=== PATIENT | male | born 1955 ===

== ENCOUNTER 2022-10-15 15:22 | Inpatient (IN) ==
--- NOTE | 2022-10-15 15:36 | Emergency Department Note ---
Weakness HPI General Chief complaint: Weakness Stated complaint: Weakness Time Seen by Provider: 10/15/22 15:26 Source: EMS Mode of arrival: EMS History of Present Illness HPI Narrative: Narrative: Patient is a 67-year-old male who is brought in today by EMS with complaint of having generalized weakness over the last couple of months. Patient reports that he normally lives in [place], [place] but his brother had brought him to the [place] here to stay with him over the New 's holiday and to have "a henriquez-dig get together". He reports that his brother and [id number] helped him shower last night and he has been sitting on the couch today. He had difficulty standing up and getting up off the couch so his brother and [id number] called the ambulance. He reports he has a history of arthritis and dementia. He reports that he receives his medications from the [facility] pharmacy in [place]. Patient reports that he does drink alcohol. He denies any illicit drug use. He does not drink alcohol on a daily basis. His last drink was a week ago. Patient denies any fevers, chills, vision changes, headache, dizziness, chest pain, shortness of breath, cough, abdominal pain, nausea, vomiting, bleeding, or blood loss. Patient has history of urinary retention and reports he takes medication for his urinary retention. He is able to urinate but has weakened stream with urination. Other HPI was obtained today from reviewing patient's PCP office visit note from the [facility] date of service May 30, 2022. 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 Patient has chronic low back pain and chronic numbness to his legs and feet. 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 He does not feel that his back pain is worse or having any worsening numbness or tingling to his legs. He does occasionally have incontinence of urine which is been going on for several years with this patient. Patient typically ambulates occasionally with a cane and sometimes uses a walker or a wheelchair. He has medication list from his PCP as acetaminophen 500 mg by mouth every 6 hours as needed, hydrocodone 5/325 mg tablet every 6 hours if needed for pain, furosemide 20 mg tablet daily, gabapentin 600 mg p.o. 3 times daily, levothyroxine 150 mcg daily, meloxicam 15 mg tablet daily as needed for muscle spasm, multivitamin once daily, omeprazole once daily, potassium chloride 10 mEq daily, tamsulosin 0.4 mg capsule to take to once daily, thiamine 100 mg once daily. Related Data Home Medications Medication Instructions Recorded Confirmed Unobtainable 10/15/22 10/15/22 Allergies Allergy/AdvReac Type Severity Reaction Status Date / Time No Known Drug Allergies Allergy Verified 10/15/22 15:23 Review of Systems ROS ROS Narrative: Narrative: All systems ED: reviewed and negative except as stated. [facility] Narrative Patient History Narrative: Narrative: Medical/Surgical/Family History All Active Problems (Updated 10/15/22 @ 18:46 by TURNER Adler) Cellulitis (Acute) Hypomagnesemia (Acute) Acute hypokalemia (Acute) Exam Narrative Narrative: Narrative: General General appearance: Present alert and in no apparent distress Head Head: Present atraumatic and normal inspection Eye Eye: Present normal appearance and PERRL; Absent scleral icterus or nystagmus ENT ENT: Present mucous membranes dry; Absent nasal congestion Neck Neck: Present normal inspection and full ROM Chest Chest: Present normal inspection and symmetric chest wall rise Respiratory Respiratory: Present other (Lung sounds clear to auscultate with slight exp iratory wheeze in the left lower lobe.); Absent respiratory distress or accessory muscle use Cardiovascular Cardiovascular: Present regular rate and normal rhythm Adbominal Abdominal: Present soft; Absent distention or tenderness Extremities Extremities: Present full ROM and normal capillary refill Expanded Lower Extremity Top foot image: 1. Erythema, swelling, and tenderness with palpation. Small fissuring between the first and second toe. Back Back: Present normal inspection and full ROM; Absent spinous process tenderness Neurological Neurological: Present alert and CN II-XII intact; Absent motor sensory deficit Expanded Neurological Patient oriented to: Present person and place; Absent time Speech: Present fluid speech CRANIAL NERVES: EOM function (II, III, IV, ): Normal, facial sensation (V): Normal, facial palsy (VII): Normal, gag reflex (IX): Normal, spinal accessory f unction (XI): Normal and tongue deviation (XII): Normal Motor strength - LUE: 4/5 Motor strength - RUE: 4/5 Motor strength - LLE: 4/5 Motor strength - RLE: 4/5 SENSORY EXAM UPPER EXTREMITY: Normal: light touch SENSORY EXAM LOWER EXTREMITY: Normal: light touch Coma Scale Eye Opening: Spontaneous Coma Scale Motor Response: Obeys Commands Coma Scale Verbal Response: Confused Coma Scale Total: 14 Psychiatric Psychiatric: Present other (Patient appears moderately anxious. Patient has akathisia.); Absent homicidal ideation or suicidal ideation Skin Skin: Present warm (WNL), dry and normal color Course Vital Signs Vital signs: Vital Signs Oxygen Delivery Method 10/15/22 15:24 Temperature 102.7 F H 10/15/22 17:51 Pulse Rate 153 H 10/15/22 19:01 Respiratory Rate 30 H 10/15/22 19:01 Blood Pressure 108/78 10/15/22 19:01 Pulse Oximetry (%) 96 10/15/22 19:01 Oxygen Delivery Method 10/15/22 15:24 MDM MDM Narrative Medical decision making narrative: Narrative: Patient is a 67-year-old male who was brought in today by EMS after his brother called EMS. He typically lives in [place] and came to stay with his brother a few days ago. Patient is a relatively poor historian and majority of information gathered from both patient, patient's brother, and patient's primary care office visit note today to develop past medical history. Patient apparently requires assistance and has not been able to care for himself very well at home. He does have a Mediset today and apparently does miss a few doses of his medication. Patient's past medical history includes alcohol induced memory loss with patient having generalized weakness over the last several years. I was able to review his PCPs office clinic note from May 30, 2022 where he continued to have bilateral leg and low back pain. 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 Moderate foraminal encroachment on the left and mild on the right. Patient had foraminal encroachment on the right at the L5-S1 level. Patient denies any worsening back pain today and lower extremity neurological examination is unremarkable for any findings of cauda equina syndrome or worsening nerve root impingement, and I feel that proceeding with emergent MRI is likely not necessary today or emergent consultation with a neurosurgeon. Patient would likely need to be seen as an outpatient with a consultation with neurosurgery, however with his alcoholism it may be difficult for the patient be a candidate for elective lumbar neurosurgery. Patient reports he has not drank in a week. He apparently has not drank in the last 3 days according to the brother who is with him today. He was given 1 L normal saline intravenously for hydration, labs, chest x-ray, and EKG obtained today. Patient was appearing moderately anxious and was given 1 mg of IV lorazepam. Today patient's CBC does not show any leukocytosis. 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 His hemoglobin is 10.9 and hematocrit 31.3. Platelets 77. Chest x-ray today to my review is normal chest x-ray and do not see any definite infiltrate. Patient has erythema to the right foot with swelling and pain with palpation. Differential diagnosis could include cellulitis versus gout. Given that this extends past the MTP joint to the foot and he has a small fissure we will be treated for cellulitis. He was given 1 g Rocephin IV today in the emergency department. We did add a uric acid level to the patient's lab today. Uric acid level today is negative given the suspicion of gout less likely and more likely cellulitis to the right foot. X-ray of right foot was obtained today to evaluate for osteomyelitis. Foot x-ray was reviewed by myself and do not see any sign of osteomyelitis. There is soft tissue swelling suggestive of cellulitis. Patient's magnesium level is low at 0.8. 2 g magnesium sulfate IV ordered to be given in the emergency department. 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 EKG shows sinus tachycardia with a rate of 154. Patient did develop a fever and I ordered blood cultures, lactic acid, and IV antibiotic to be given for treatment of cellulitis to the right foot. Patient's lactic acid today is normal at 0.9. Patient's COVID and influenza test today are negative. Patient's [id number] troponin is negative. His BNP is 3197. TSH elevated at 16.94 and given his history of hypothyroidism and noncompliance with medication this may be why this is elevated. Patient sodium is 136 with a potassium of 2.6. Patient was ordered 40 mEq of IV potassium in the emergency department. Patient's glucose 93. Patient albumin level is 3.1 which is minimally low and patient's alkaline phos is 110 which is normal. His AST minimally elevated at 69. His bilirubin is high at 6.1. Given his alcohol history he ordered a INR and ammonia level. Patient's ammonia level is 40 today which is normal. Patient's INR today is 1.2. Patient's meld score today is 16 points. Patient is being hydrated with NS 30 mL/kg and a second liter of NS bolus was ordered. Patient was also given 650 mg of IV Tylenol for fever. Patient's tachycardia has improved since receiving IV fluids, IV antibiotics, and is currently receiving replacement of potassium and magnesium. Patient's pulse is 109 with respirations 22 and oxygen saturation 97% on room air. Patient's blood pressure is 114/73. Given the patient's electrolyte imbalance, fever, tachycardia, and high risk for failure of outpatient treatment for cellulitis. Due to these reasons I feel that the best plan for this patient would be hospital admission today where patient can receive electrolyte replacement and IV antibiotic for treatment of cellulitis. I was able to speak with Dr. Shields who is on today for hospitalist at [facility]. He agrees to accept the patient for hospital ad mission. Patient will be admitted to [facility] today. Lab Data Result diagrams: 10/15/22 16:10 Labs: Lab Results 10/15/22 10/15/22 10/15/22 Range/Units 16:10 16:10 16:10 WBC 7.5 (4.5-11.0) K/mcL RBC 2.90 L (4.63-6.08) M/mcL Hgb 10.9 L (13.7-17.5) g/dL Hct 31.3 L (40.1-51.0) % POC Hct (41-55) MCV 107.9 H (80.0-100.0) fL MCH 37.6 H (26.0-34.0) pg MCHC 34.8 (31.0-36.0) g/dL RDW 15.6 H (11.5-14.5) % Plt Count 77 L (140-440) K/mcL MPV 12.7 H (8.8-12.5) fL Immature Gran % (Auto) 1.2 H (0.0-0.5) % Neut % (Auto) 69.8 (38.0-78.0) % Lymph % (Auto) 15.9 (15.5-49.0) % Gregory % (Auto) 12.6 H (1.0-12.0) % Eos % (Auto) 0.1 (0.0-7.0) % Baso % (Auto) 0.4 (0.0-2.0) % Lymph # (Auto) 1.20 L (1.50-4.80) K/mcL Gregory # (Auto) 0.95 H (0.10-0.90) K/mcL Eos # (Auto) 0.01 (0.00-0.70) K/mcL Baso # (Auto) 0.03 (0.00-0.30) K/mcL Immature Gran # 0.09 H (0.00-0.05) K/mcl Absolute Neutrophils 5.26 (1.80-8.00) K/mcL POC PT (11.9-14.5) POC INR (0.8-1.2) POC VBG pH (7.32-7.42) POC VBG pCO2 at Temp (41-51) POC VBG pO2 (25-40) POC VBG HCO3 (24-28) POC VBG Total CO2 (25-29) POC Venous O2 Sat (40-70) POC VBG Base Excess (-2-2) VBG Lactic Acid (0.5-2) POC Sodium (133-145) POC Potassium (3.3-5.1) POC Chloride (96-108) POC Total CO2 (22-30) POC BUN (6-20) POC Creatinine (0.6-1.2) POC Glucose (70-105) Uric Acid (2.5-8.0) mg/dL POC WB Ioniz Calcium (1.16-1.32) Magnesium 0.8 L* (1.6-2.5) mg/dL Total Bilirubin 6.1 H (0.1-1.0) mg/dL Direct Bilirubin 3.9 H (<0.3) mg/dL AST 69 H (<40) U/L ALT 27 (<40) U/L Alkaline Phosphatase 110 (39-117) U/L Ammonia (16-60) umol/L Troponin T < 0.01 (<0.03) ng/mL NT-Pro-B Natriuret Pep 3197.0 H (<125.0) pg/mL Total Protein 6.2 (5.9-8.4) gm/dL Albumin 3.1 L (3.2-5.2) gm/dL Globulin 3.1 (2.2-3.7) gm/dL TSH 16.94 H (0.27-5.01) uIU/mL Ethyl Alcohol mg/dL mg/dL Ethyl Alcohol g/dL (<0.010) gm/dL 10/15/22 10/15/22 10/15/22 Range/Units 16:10 16:10 17:48 WBC (4.5-11.0) K/mcL RBC (4.63-6.08) M/mcL Hgb (13.7-17.5) g/dL Hct (40.1-51.0) % POC Hct (41-55) MCV (80.0-100.0) fL MCH (26.0-34.0) pg MCHC (31.0-36.0) g/dL RDW (11.5-14.5) % Plt Count (140-440) K/mcL MPV (8.8-12.5) fL Immature Gran % (Auto) (0.0-0.5) % Neut % (Auto) (38.0-78.0) % Lymph % (Auto) (15.5-49.0) % Gregory % (Auto) (1.0-12.0) % Eos % (Auto) (0.0-7.0) % Baso % (Auto) (0.0-2.0) % Lymph # (Auto) (1.50-4.80) K/mcL Gregory # (Auto) (0.10-0.90) K/mcL Eos # (Auto) (0.00-0.70) K/mcL Baso # (Auto) (0.00-0.30) K/mcL Immature Gran # (0.00-0.05) K/mcl Absolute Neutrophils (1.80-8.00) K/mcL POC PT (11.9-14.5) POC INR (0.8-1.2) POC VBG pH 7.50 H (7.32-7.42) POC VBG pCO2 at Temp 32.2 L (41-51) POC VBG pO2 36 (25-40) POC VBG HCO3 24.9 (24-28) POC VBG Total CO2 26.0 (25-29) POC Venous O2 Sat 75.0 H (40-70) POC VBG Base Excess 2.0 (-2-2) VBG Lactic Acid 0.9 (0.5-2) POC Sodium (133-145) POC Potassium (3.3-5.1) POC Chloride (96-108) POC Total CO2 (22-30) POC BUN (6-20) POC Creatinine (0.6-1.2) POC Glucose (70-105) Uric Acid 7.3 (2.5-8.0) mg/dL POC WB Ioniz Calcium (1.16-1.32) Magnesium (1.6-2.5) mg/dL Total Bilirubin (0.1-1.0) mg/dL Direct Bilirubin (<0.3) mg/dL AST (<40) U/L ALT (<40) U/L Alkaline Phosphatase (39-117) U/L Ammonia (16-60) umol/L Troponin T (<0.03) ng/mL NT-Pro-B Natriuret Pep (<125.0) pg/mL Total Protein (5.9-8.4) gm/dL Albumin (3.2-5.2) gm/dL Globulin (2.2-3.7) gm/dL TSH (0.27-5.01) uIU/mL Ethyl Alcohol mg/dL < 10.0 mg/dL Ethyl Alcohol g/dL < 0.010 (<0.010) gm/dL 10/15/22 10/15/22 10/15/22 Range/Units 17:52 18:07 18:25 WBC (4.5-11.0) K/mcL RBC (4.63-6.08) M/mcL Hgb (13.7-17.5) g/dL Hct (40.1-51.0) % POC Hct 31.0 L (41-55) MCV (80.0-100.0) fL MCH (26.0-34.0) pg MCHC (31.0-36.0) g/dL RDW (11.5-14.5) % Plt Count (140-440) K/mcL MPV (8.8-12.5) fL Immature Gran % (Auto) (0.0-0.5) % Neut % (Auto) (38.0-78.0) % Lymph % (Auto) (15.5-49.0) % Gregory % (Auto) (1.0-12.0) % Eos % (Auto) (0.0-7.0) % Baso % (Auto) (0.0-2.0) % Lymph # (Auto) (1.50-4.80) K/mcL Gregory # (Auto) (0.10-0.90) K/mcL Eos # (Auto) (0.00-0.70) K/mcL Baso # (Auto) (0.00-0.30) K/mcL Immature Gran # (0.00-0.05) K/mcl Absolute Neutrophils (1.80-8.00) K/mcL POC PT 13.4 14.8 H (11.9-14.5) POC INR 1.1 1.2 (0.8-1.2) POC VBG pH (7.32-7.42) POC VBG pCO2 at Temp (41-51) POC VBG pO2 (25-40) POC VBG HCO3 (24-28) POC VBG Total CO2 (25-29) POC Venous O2 Sat (40-70) POC VBG Base Excess (-2-2) VBG Lactic Acid (0.5-2) POC Sodium 136 (133-145) POC Potassium 2.6 L* (3.3-5.1) POC Chloride 98 (96-108) POC Total CO2 22.0 (22-30) POC BUN 8 (6-20) POC Creatinine 0.7 (0.6-1.2) POC Glucose 93 (70-105) Uric Acid (2.5-8.0) mg/dL POC WB Ioniz Calcium 0.91 L (1.16-1.32) Magnesium (1.6-2.5) mg/dL Total Bilirubin (0.1-1.0) mg/dL Direct Bilirubin (<0.3) mg/dL AST (<40) U/L ALT (<40) U/L Alkaline Phosphatase (39-117) U/L Ammonia (16-60) umol/L Troponin T (<0.03) ng/mL NT-Pro-B Natriuret Pep (<125.0) pg/mL Total Protein (5.9-8.4) gm/dL Albumin (3.2-5.2) gm/dL Globulin (2.2-3.7) gm/dL TSH (0.27-5.01) uIU/mL Ethyl Alcohol mg/dL mg/dL Ethyl Alcohol g/dL (<0.010) gm/dL 10/15/22 Range/Units 18:30 WBC (4.5-11.0) K/mcL RBC (4.63-6.08) M/mcL Hgb (13.7-17.5) g/dL Hct (40.1-51.0) % POC Hct (41-55) MCV (80.0-100.0) fL MCH (26.0-34.0) pg MCHC (31.0-36.0) g/dL RDW (11.5-14.5) % Plt Count (140-440) K/mcL MPV (8.8-12.5) fL Immature Gran % (Auto) (0.0-0.5) % Neut % (Auto) (38.0-78.0) % Lymph % (Auto) (15.5-49.0) % Gregory % (Auto) (1.0-12.0) % Eos % (Auto) (0.0-7.0) % Baso % (Auto) (0.0-2.0) % Lymph # (Auto) (1.50-4.80) K/mcL Gregory # (Auto) (0.10-0.90) K/mcL Eos # (Auto) (0.00-0.70) K/mcL Baso # (Auto) (0.00-0.30) K/mcL Immature Gran # (0.00-0.05) K/mcl Absolute Neutrophils (1.80-8.00) K/mcL POC PT (11.9-14.5) POC INR (0.8-1.2) POC VBG pH (7.32-7.42) POC VBG pCO2 at Temp (41-51) POC VBG pO2 (25-40) POC VBG HCO3 (24-28) POC VBG Total CO2 (25-29) POC Venous O2 Sat (40-70) POC VBG Base Excess (-2-2) VBG Lactic Acid (0.5-2) POC Sodium (133-145) POC Potassium (3.3-5.1) POC Chloride (96-108) POC Total CO2 (22-30) POC BUN (6-20) POC Creatinine (0.6-1.2) POC Glucose (70-105) Uric Acid (2.5-8.0) mg/dL POC WB Ioniz Calcium (1.16-1.32) Magnesium (1.6-2.5) mg/dL Total Bilirubin (0.1-1.0) mg/dL Direct Bilirubin (<0.3) mg/dL AST (<40) U/L ALT (<40) U/L Alkaline Phosphatase (39-117) U/L Ammonia 40 (16-60) umol/L Troponin T (<0.03) ng/mL NT-Pro-B Natriuret Pep (<125.0) pg/mL Total Protein (5.9-8.4) gm/dL Albumin (3.2-5.2) gm/dL Globulin (2.2-3.7) gm/dL TSH (0.27-5.01) uIU/mL Ethyl Alcohol mg/dL mg/dL Ethyl Alcohol g/dL (<0.010) gm/dL ED POC Tests ED POC Tests: DAVID - Influenza A Negative DAVID - Influenza B Negative DAVID - SARS Antigen Negative Discharge Plan Patient/Caregiver Discharge Instructions Pt seen by [employer] SUPERVISOR/PA only: No Clinical Impression: Hypomagnesemia, Acute hypokalemia Cellulitis Qualifiers: Site of cellulitis: extremity Site of cellulitis of extremity: lower extremity Laterality: right Qualified Code(s): L03.115 - Cellulitis of right lower limb Patient Disposition: Xfer As Inpt ([facility]) Follow up with: Lester Marin PA-C [Primary Care Provider] - Prescriptions: No Action Unobtainable
[2022-10-15] MEDS ORDERED: 0.9 % SODIUM CHLORIDE 1,000 ML IV ONE ×2 (15:38→18:16)
[2022-10-15] MEDS ORDERED: FOLIC ACID 1 MG TABLET PO ONE (15:48)
[2022-10-15] MEDS ORDERED: THIAMINE 100 MG in 0.9 % SODIUM CHLORIDE 50 ML IV ONE (15:48)
[2022-10-15] MEDS ORDERED: LORazepam 2 MG/ML VIAL IV ONE ×2 (16:00→18:46)
[2022-10-15] MEDS ORDERED: THIAMINE 100 MG/ML VIAL ONE ×2 (16:18→22:47)
[2022-10-15 16:46] LABS: Basophils # (Auto) 0.03 K/mcL (0.00-0.30); Basophils % (Auto) 0.4 % (0.0-2.0); Eosinophils # (Auto) 0.01 K/mcL (0.00-0.70); Eosinophils % (Auto) 0.1 % (0.0-7.0); Hematocrit 31.3 % (40.1-51.0); Hemoglobin 10.9 g/dL (13.7-17.5); Lymphocytes % (Auto) 15.9 % (15.5-49.0); Mean Cell Volume 107.9 fL (80.0-100.0); Mean Corpuscular HGB Conc 34.8 g/dL (31.0-36.0); Mean Platelet Volume 12.7 fL (8.8-12.5); Monocytes # (Auto) 0.95 K/mcL (0.10-0.90); Monocytes % (Auto) 12.6 % (1.0-12.0); Neutrophils % (Auto) 69.8 % (38.0-78.0); Platelet Count 77 K/mcL (140-440); Red Cell Distribution Width 15.6 % (11.5-14.5); WBC 7.5 K/mcL (4.5-11.0)
[2022-10-15 17:03] LABS: Alcohol, Blood < 10.0 mg/dL; Alcohol,Blood < 0.010 gm/dL (<0.010)
[2022-10-15] MEDS ORDERED: cefTRIAXone 1 GM VIAL IV ONE (17:13)
[2022-10-15 17:27] LABS: ALT/SGPT 27 U/L (<40); AST/SGOT 69 U/L (<40); Albumin 3.1 gm/dL (3.2-5.2); Alkaline Phosphatase 110 U/L (39-117); Bilirubin,Direct 3.9 mg/dL (<0.3); Bilirubin,Total 6.1 mg/dL (0.1-1.0); Globulin 3.1 gm/dL (2.2-3.7); Thyroid Stimulating Hormone 16.94 uIU/mL (0.27-5.01)
[2022-10-15 17:34] LABS: Uric Acid 7.3 mg/dL (2.5-8.0)
[2022-10-15] MEDS ORDERED: MAGNESIUM SULFATE 8.12 MEQ in DEXTROSE 5% IN WATER 50 ML IV ONE (17:49)
[2022-10-15] MEDS ORDERED: POTASSIUM CHLORIDE 40 MEQ in DEXTROSE 5% IN WATER 500 ML IV ONE ×2 (17:54→22:30)
[2022-10-15 17:56] LABS: POC Calcium, Ionized 0.91 (1.16-1.32); POC Creatinine 0.7 (0.6-1.2); POC Potassium 2.6 (3.3-5.1)
[2022-10-15] MEDS ORDERED: MAGNESIUM SULFATE 2 GM/50 ML BAG IV ONE ×2 (17:58→18:23)
[2022-10-15] MEDS ORDERED: POTASSIUM CHLORIDE 20 MEQ/10 ML VIAL IV ONE ×2 (17:59→22:49)
[2022-10-15] MEDS ORDERED: POTASSIUM PHOSPHATE 40 MEQ in DEXTROSE 5% IN WATER 500 ML IV ONE (18:11)
[2022-10-15 18:12] LABS: POC INR 1.1 (0.8-1.2); POC Pro Time 13.4 (11.9-14.5)
[2022-10-15 18:28] LABS: POC INR 1.2 (0.8-1.2); POC Pro Time 14.8 (11.9-14.5)
[2022-10-15] MEDS ORDERED: ACETAMINOPHEN 650 MG/65 ML BAG IV ONE (18:34)
--- NOTE | 2022-10-15 20:01 | Internal Med History&Physical ---
HPI History of Present Illness Patient information: Note initiated : 10/15/22 at 7:57 pm Service Date, if different from initiated Date: [] Patient: Sandip Montana 67 y/o M admitted on for Weakness. Chief Complaint: [] History of present illness: Mr. Montana is a 67 year old M male with a historyof severe alcohol use disorder, cognitive impairment, hypothyroidism, BPH, degenerative disc disease who is visiting family and was brought to the ED by family due to concerns of generalized weakness and inability to manage his activities of daily living as well as lower extremity edema. The patient was found to have cellulitis of his right foot in the ED as well as hypokalemia and hypomagnesemia. Per report, the patient consumes a significant amount of alcohol daily most the time but has not consumed alcohol for several days. He is apparently homebound and requires a caregiver at baseline. The patient lives in [place] and came to spent the holiday weekend with family. Hospital medicine was asked to admit the patient for cellulitis, electrolyte replacement and supportive cares. The patient is unable to provide any history as he received Ativan in the ED and was asleep when I examined him. The ED provider did discuss CODE STATUS with his family members and the patient is full code. Review of systems: Unable to obtain due to altered mental status. Physical exam Head: Atraumatic, normal inspection. Eyes: normal appearance, no scleral icterus. Neck: full ROM Respiratory: Tachypnea, clear sounding lung robertson bilaterally. Cardiovascular: Tachycardia, S1, S2. GI/Abdominal: soft, nontender, no guarding. Extremities: right foot edema, warmth and tenderness. Neurological: CN II-XII intact, intact motor, intact sensation. Psychiatric: Impaired cognition. Skin: Cellulitis of the right foot. PFSH PFSH All Active Problems (Updated 10/15/22 @ 18:46 by TURNER Adler) Cellulitis (Acute) Hypomagnesemia (Acute) Acute hypokalemia (Acute) MEDS/ALLERGIES Home Medications and Allergies Home Medications Medication Instructions Recorded Confirmed Type Unobtainable 10/15/22 10/15/22 History Allergies Allergy/AdvReac Type Severity Reaction Status Date / Time No Known Drug Allergies Allergy Verified 10/15/22 15:23 EXAM Constitutional Vitals: Temp Pulse Resp BP Pulse Ox O2 Del Method 102.7 F H 61 23 H 96/77 98 10/15/22 17:51 10/15/22 19:48 10/15/22 19:48 10/15/22 19:31 10/15/22 19:48 10/15/22 15:24 DATA Data Completed and Pending Labs: Labs from last 24 hours 10/15/22 10/15/22 10/15/22 18:30 18:25 18:10 WBC RBC Hgb Hct POC Hct MCV MCH MCHC RDW Plt Count MPV Immature Gran % (Auto) Neut % (Auto) Lymph % (Auto) Bradley % (Auto) Eos % (Auto) Baso % (Auto) Lymph # (Auto) Bradley # (Auto) Eos # (Auto) Baso # (Auto) Immature Gran # Absolute Neutrophils POC PT 14.8 H Pending POC INR 1.2 Pending POC VBG pH POC VBG pCO2 at Temp POC VBG pO2 POC VBG HCO3 POC VBG Total CO2 POC Venous O2 Sat POC VBG Base Excess VBG Lactic Acid POC Sodium POC Potassium POC Chloride POC Total CO2 POC BUN POC Creatinine POC Glucose Uric Acid POC WB Ioniz Calcium Magnesium Total Bilirubin Direct Bilirubin AST ALT Alkaline Phosphatase Ammonia 40 Troponin T NT-Pro-B Natriuret Pep Total Protein Albumin Globulin TSH Ethyl Alcohol mg/dL Ethyl Alcohol g/dL 10/15/22 10/15/22 10/15/22 18:07 17:52 17:48 WBC RBC Hgb Hct POC Hct 31.0 L MCV MCH MCHC RDW Plt Count MPV Immature Gran % (Auto) Neut % (Auto) Lymph % (Auto) Bradley % (Auto) Eos % (Auto) Baso % (Auto) Lymph # (Auto) Bradley # (Auto) Eos # (Auto) Baso # (Auto) Immature Gran # Absolute Neutrophils POC PT 13.4 POC INR 1.1 POC VBG pH 7.50 H POC VBG pCO2 at Temp 32.2 L POC VBG pO2 36 POC VBG HCO3 24.9 POC VBG Total CO2 26.0 POC Venous O2 Sat 75.0 H POC VBG Base Excess 2.0 VBG Lactic Acid 0.9 POC Sodium 136 POC Potassium 2.6 L* POC Chloride 98 POC Total CO2 22.0 POC BUN 8 POC Creatinine 0.7 POC Glucose 93 Uric Acid POC WB Ioniz Calcium 0.91 L Magnesium Total Bilirubin Direct Bilirubin AST ALT Alkaline Phosphatase Ammonia Troponin T NT-Pro-B Natriuret Pep Total Protein Albumin Globulin TSH Ethyl Alcohol mg/dL Ethyl Alcohol g/dL 10/15/22 10/15/22 10/15/22 16:10 16:10 16:10 WBC RBC Hgb Hct POC Hct MCV MCH MCHC RDW Plt Count MPV Immature Gran % (Auto) Neut % (Auto) Lymph % (Auto) Bradley % (Auto) Eos % (Auto) Baso % (Auto) Lymph # (Auto) Bradley # (Auto) Eos # (Auto) Baso # (Auto) Immature Gran # Absolute Neutrophils POC PT POC INR POC VBG pH POC VBG pCO2 at Temp POC VBG pO2 POC VBG HCO3 POC VBG Total CO2 POC Venous O2 Sat POC VBG Base Excess VBG Lactic Acid POC Sodium POC Potassium POC Chloride POC Total CO2 POC BUN POC Creatinine POC Glucose Uric Acid 7.3 POC WB Ioniz Calcium Magnesium 0.8 L* Total Bilirubin 6.1 H Direct Bilirubin 3.9 H AST 69 H ALT 27 Alkaline Phosphatase 110 Ammonia Troponin T NT-Pro-B Natriuret Pep 3197.0 H Total Protein 6.2 Albumin 3.1 L Globulin 3.1 TSH 16.94 H Ethyl Alcohol mg/dL < 10.0 Ethyl Alcohol g/dL < 0.010 10/15/22 10/15/22 16:10 16:10 WBC 7.5 RBC 2.90 L Hgb 10.9 L Hct 31.3 L POC Hct MCV 107.9 H MCH 37.6 H MCHC 34.8 RDW 15.6 H Plt Count 77 L MPV 12.7 H Immature Gran % (Auto) 1.2 H Neut % (Auto) 69.8 Lymph % (Auto) 15.9 Bradley % (Auto) 12.6 H Eos % (Auto) 0.1 Baso % (Auto) 0.4 Lymph # (Auto) 1.20 L Bradley # (Auto) 0.95 H Eos # (Auto) 0.01 Baso # (Auto) 0.03 Immature Gran # 0.09 H Absolute Neutrophils 5.26 POC PT POC INR POC VBG pH POC VBG pCO2 at Temp POC VBG pO2 POC VBG HCO3 POC VBG Total CO2 POC Venous O2 Sat POC VBG Base Excess VBG Lactic Acid POC Sodium POC Potassium POC Chloride POC Total CO2 POC BUN POC Creatinine POC Glucose Uric Acid POC WB Ioniz Calcium Magnesium Total Bilirubin Direct Bilirubin AST ALT Alkaline Phosphatase Ammonia Troponin T < 0.01 NT-Pro-B Natriuret Pep Total Protein Albumin Globulin TSH Ethyl Alcohol mg/dL Ethyl Alcohol g/dL A/P Narrative A/P Narrative: Assessment: 67-year-old male with a history of severe alcohol use disorder complicated by cognitive impairment, hypothyroidism, BPH, degenerative disc disease was brought to the emergency department by concerned family members due to generalized weakness, inability to manage ADLs and lower extremity edema. In the emergency department, the patient was found to have cellulitis, severe hypokalemia and severe hypomagnesemia. Chest x-ray did not show any infiltrates. Lactic acid was normal. #SIRS possible sepsis #Nonpurulent cellulitis of right foot versus gout #Tachycardia, high risk for atrial fibrillation or atrial flutter #Severe hypokalemia #Severe hypomagnesemia #Severe alcohol use disorder/high risk for a withdrawal #Macrocytic anemia likely secondary to alcohol use #Thrombocytopenia likely secondary to alcohol use #Elevated bilirubin likely secondary to alcohol use #Hypothyroidism, poorly controlled likely secondary to noncompliance #Reported chronic hepatitis C #Probable malnourishment #Generalized weakness #Cognitive impairment likely secondary to chronic alcohol use Plan -Cefazolin 2 g IV daily hours -Blood cultures x2. -Replace potassium and magnesium. -X-ray of right foot. -Urinalysis with reflex to culture. -CIWA protocol with Ativan IV as needed. -Vitamin supplementation including with high-dose IV thiamine. -IV fluid, monitor volume status. -Repeat EKG. -Transthoracic echocardiogram. -Liver and gallbladder ultrasound. --Consider ultrasound to evaluate for right MTP joint effusion. -Monitor CBC, IPP. -Check vitamin B12 level. -Check D-dimer, if elevated obtain CTA chest. -Urine drug screen. -security monitor. -Regular diet. -PT and OT consult. -Home medication reconciliation, continue important meds. -DVT prophylaxis: Lovenox as long as platelets greater than 50,000. -CODE STATUS: Full -Disposition: TBD Time Spent With Patient Time: Total time spent is greater than 50% in coordination of care (as documented) at patient's floor/unit and/or counseling patient:
[2022-10-15] MEDS ORDERED: LORazepam 2 MG/ML VIAL IV PRN (21:16)
[2022-10-15] MEDS ORDERED: SENNOSIDES 1 TABLET PO PRN (21:16)
[2022-10-15] MEDS ORDERED: POTASSIUM CHLORIDE 20 MEQ TABLET PO ONE (21:16)
[2022-10-15] MEDS ORDERED: LACTULOSE 20 GM/30 ML ORAL.SOL PO PRN (21:16)
[2022-10-15] MEDS ORDERED: ceFAZolin 2 GM in DEXTROSE 5% IN WATER 50 ML IV SCH (21:16)
[2022-10-15] MEDS ORDERED: KETOROLAC 30 MG/ML VIAL IV PRN (21:16)
[2022-10-15] MEDS ORDERED: ONDANSETRON 4 MG/2 ML VIAL IV PRN (21:16)
[2022-10-15] MEDS ORDERED: ALBUTEROL SULFATE 2.5 MG/3 ML NEBULIZER NEB PRN (21:16)
[2022-10-15 21:27] LABS: Amphetamine Screen,Urine None detected; Barbiturate Screen,Urine None detected; Benzodiazepines Screen,Urine None detected; Cannabinoid Screen,Urine None detected; Cocaine Screen,Urine None detected; Opiate Screen,Urine None detected; Oxycodone, Urine Screen None detected; Phencyclidine Screen,Urine None detected
[2022-10-15 21:56] LABS: C-Reactive Protein 10.5 mg/dL (0.03-0.80)
[2022-10-15] MEDS ORDERED: AMIODARONE 150 MG in DEXTROSE 5% IN WATER 50 ML IV ONE (22:25)
[2022-10-15] MEDS ORDERED: HALOPERIDOL LACTATE 5 MG/ML VIAL IV PRN (22:25)
[2022-10-15] MEDS: DOCUSATE SODIUM 100 MG CAPSULE PO SCH (22:30)
[2022-10-15] MEDS ORDERED: PHENYLEPHRINE 20 MG in 0.9 % SODIUM CHLORIDE 248 ML IV PRN (22:30)
[2022-10-15] MEDS: 0.9 % SODIUM CHLORIDE 1,000 ML IV SCH (22:37)
[2022-10-15] MEDS: ceFAZolin 1 GM VIAL IV SCH (22:54)
[2022-10-15] MEDS: 0.9 % SODIUM CHLORIDE 10 ML SYRINGE IV SCH ×2 (22:55)
[2022-10-15] MEDS: THIAMINE 300 MG in 0.9 % SODIUM CHLORIDE 50 ML IV SCH (22:55)
[2022-10-15] MEDS ORDERED: AMIODARONE 150 MG/3 ML VIAL IV ONE (23:17)
[2022-10-15] MEDS ORDERED: AMIODARONE 360 MG/200 ML BAG IV ONE (23:45)
[2022-10-15] MEDS: AMIODARONE 360 MG in PREMIX 1 BAG IV SCH (23:46)
[2022-10-15] MEDS: 0.9 % SODIUM CHLORIDE 250 ML IV SCH (23:53)
[2022-10-16] MEDS: fentaNYL 100 MCG/2 ML VIAL IV PRN ×4 (00:16→18:34)
[2022-10-16] MEDS ORDERED: fentaNYL 100 MCG/2 ML VIAL IV ONE (02:37)
[2022-10-16] MEDS ORDERED: IOPAMIDOL 100 ML BOTTLE IV ONE (02:38)
[2022-10-16] MEDS: 0.9 % SODIUM CHLORIDE 10 ML SYRINGE IV SCH ×6 (05:56→21:23)
[2022-10-16] MEDS: DOCUSATE SODIUM 100 MG CAPSULE PO SCH ×2 (07:13→20:42)
[2022-10-16 07:19] LABS: ALT/SGPT 22 U/L (<40); AST/SGOT 59 U/L (<40); Albumin 2.5 gm/dL (3.2-5.2); Albumin/Globulin Ratio 0.8 (1.0-2.3); Alkaline Phosphatase 96 U/L (39-117); Bilirubin,Direct 3.6 mg/dL (<0.3); Blood Urea Nitrogen 7 mg/dL (8-23); Calcium 6.8 mg/dL (8.6-10.4); Carbon Dioxide 22 mmol/L (22-30); Chloride 102 mmol/L (96-108); Globulin 3.1 gm/dL (2.2-3.7); Glomerular Filtration Rate 99; Glucose 113 mg/dL (70-105); Lactate Dehydrogenase 228 U/L (135-225); Phosphorous 2.2 mg/dL (2.5-4.5); Triglycerides 126 mg/dL (<150); Uric Acid 5.9 mg/dL (2.5-8.0)
[2022-10-16 07:27] LABS: Basophils # (Auto) 0.02 K/mcL (0.00-0.30); Basophils % (Auto) 0.4 % (0.0-2.0); Eosinophils # (Auto) 0.09 K/mcL (0.00-0.70); Eosinophils % (Auto) 1.7 % (0.0-7.0); Hematocrit 29.5 % (40.1-51.0); Hemoglobin 9.8 g/dL (13.7-17.5); Lymphocytes % (Auto) 18.6 % (15.5-49.0); Mean Cell Volume 110.1 fL (80.0-100.0); Mean Corpuscular HGB Conc 33.2 g/dL (31.0-36.0); Mean Platelet Volume 12.7 fL (8.8-12.5); Monocytes # (Auto) 0.58 K/mcL (0.10-0.90); Monocytes % (Auto) 10.8 % (1.0-12.0); Neutrophils % (Auto) 67.9 % (38.0-78.0); Platelet Count 88 K/mcL (140-440); RBC 2.68 M/mcL (4.63-6.08); Red Cell Distribution Width 15.9 % (11.5-14.5); WBC 5.4 K/mcL (4.5-11.0)
[2022-10-16] MEDS: ceFAZolin 1 GM VIAL IV SCH ×2 (07:40→15:26)
[2022-10-16] MEDS ORDERED: MAGNESIUM SULFATE 2 GM/50 ML BAG IV ONE (08:19)
--- NOTE | 2022-10-16 09:00 | XRay Report ---
HISTORY: Increased weakness and wheezing, smoker FINDINGS: Lungs are clear and normally expanded. There is no evidence of emphysema. No infiltrate, mass or congestive heart failure are present. The heart size, mediastinum and carito are normal. There are multiple old healed rib fractures posteriorly in right upper thorax and an old fracture of the right clavicle. There has been no significant change since 12/06/21. IMPRESSION: Normal exam Interpreted and Authenticated by: Casimiro Diaz 10/16/22
--- NOTE | 2022-10-16 09:10 | XRay Report ---
HISTORY: Cellulitis right foot FINDINGS: There is moderate generalized soft tissue swelling along the dorsum of the foot. There is no gas or foreign body in the soft tissues. A mild hallux valgus deformity is present at the first metatarsal phalangeal joint. There is underlying arthritis with severe joint space narrowing and formation of small spurs. The remainder of the joint spaces are normal. There is no fracture or destructive lesion. No osteomyelitis is present. IMPRESSION: Cellulitis and no evidence of osteomyelitis Arthritis at the first metatarsal phalangeal joint Interpreted and Authenticated by: Casimiro Diaz 10/16/22
[2022-10-16] MEDS: THIAMINE 300 MG in 0.9 % SODIUM CHLORIDE 50 ML IV SCH ×3 (09:13→21:22)
[2022-10-16] MEDS: ENOXAPARIN 40 MG/0.4 ML SYRINGE SQ SCH (09:14)
[2022-10-16] MEDS: POTASSIUM CHLORIDE 20 MEQ TABLET PO SCH (09:14)
[2022-10-16] MEDS: CYANOCOBALAMIN (VITAMIN B-12) 500 MCG TABLET PO SCH (09:14)
[2022-10-16] MEDS: FOLIC ACID 1 MG TABLET PO SCH (09:14)
[2022-10-16] MEDS: ACETAMINOPHEN 325 MG TABLET PO PRN ×2 (09:15→18:01)
--- NOTE | 2022-10-16 09:33 | Cat Scan Report ---
History: Increased weakness, elevated serum d-dimer level TECHNIQUE: Following injection of intravenous nonionic contrast the chest was imaged during the pulmonary arterial phase. Sagittal, coronal and MIPS images were created. The radiation exposure was limited using dose reduction technology. FINDINGS: The pulmonary arteries are normal with no intraluminal filling defects. Main pulmonary artery is normal in caliber. Dependent atelectasis is present in the posterior basal segments of both lower lobes. There is interstitial lung disease with inflammation or fibrosis in the lateral basal segment of the left lower lobe. The remainder of the lung robertson are clear. There is no evidence of a mass, lobar consolidation or COPD. No pleural or pericardial effusion are present. The heart is normal in size and contour. There is no significant plaque formation in the coronary arteries. There are scattered plaques along the wall of a normal caliber aorta. No abnormally enlarged lymph nodes are present in the mediastinum or carito. There is symmetric gynecomastia. Moderate fatty infiltration is present throughout the liver. There is high attenuation sludge or milk of calcium layering posteriorly in the neck of the gallbladder. Gallbladder wall is not thickened or inflamed. IMPRESSION: No evidence pulmonary emboli Interstitial lung disease in the lateral basal segment of the left lower lobe which could be inflammation or fibrosis. Fatty liver Interpreted and Authenticated by: Casimiro Diaz 10/16/22
[2022-10-16] MEDS: AMIODARONE 360 MG in PREMIX 1 BAG IV SCH (11:33)
[2022-10-16] MEDS: 0.9 % SODIUM CHLORIDE 250 ML IV SCH (11:39)
[2022-10-16] MEDS: METOPROLOL TARTRATE 25 MG TABLET PO SCH ×2 (12:29→21:17)
--- NOTE | 2022-10-16 12:42 | Ultrasound Report ---
History: Elevated liver enzymes, fatty liver on CT FINDINGS: The liver is echogenic due to diffuse fatty infiltration. This is demonstrated on the preceding chest CT. There is no evidence of a liver mass. Doppler shows normal blood flow in the hepatic and portal veins. There is some echogenic sludge layering posteriorly in the neck and fundus of the gallbladder. No discrete stone is seen. The wall is 1.5 mm in thickness and the patient was nontender while scanning over the gallbladder. No free fluid is present. The visualized portions of the bile ducts are normal in caliber with the common duct measuring up to 4.3 mm. The pancreas is obscured by overlying bowel gas. No ascites is present. IMPRESSION: Echogenic sludge versus milk of calcium in the gallbladder. No evidence of cholecystitis and no dilatation of bile ducts. Fatty infiltration of the liver, without evidence of cirrhosis Interpreted and Authenticated by: Casimiro Diaz 10/16/22
--- NOTE | 2022-10-16 13:41 | Internal Med Progress Note ---
SUBJECTIVE Subjective Patient information: Note initiated : 10/16/22 at 1:34 pm Service Date, if different from initiated Date: [] Patient: Sandip Montana 67 y/o M admitted on 10/15/22 for Weakness. Chief Complaint: [] Interval history: Mr. Montana is a 67 year old M male with a historyof severe alcohol use disorder, cognitive impairment, hypothyroidism, BPH, degenerative disc disease who is visiting family and was brought to the ED by family due to concerns of generalized weakness and inability to manage his activities of daily living as well as lower extremity edema. The patient was found to have cellulitis of his right foot in the ED as well as hypokalemia and hypomagnesemia. Per report, the patient consumes a significant amount of alcohol daily most the time but has not consumed alcohol for several days. He is apparently homebound and requires a caregiver at baseline. The patient lives in [place] and came to spent the holiday weekend with family. Hospital medicine was asked to admit the patient for cellulitis, electrolyte replacement and supportive cares. The patient is unable to provide any history as he received Ativan in the ED and was asleep when I examined him. The ED provider did discuss CODE STATUS with his family nancie logan and the patient is full code. 10/16 Overnight the patient went into atrial fibrillation with rapid ventricular response, started a amiodarone bolus followed by infusion and the patient converted back to sinus rhythm. This morning started Lopressor 25 mg twice daily and discontinued the amiodarone infusion. The patient is alert and oriented today. Cellulitis improving since admission. Replaced magnesium, potassium normal today. Radiology reports of the foot x-ray was not suggestive of osteomyelitis, no fractures noted. CTA chest did not show any pulmonary emboli, there was interstitial lung disease in the lateral basal segment of the left lower lobe which could be inflammation or fibrosis. Liver ultrasound revealed echogenic sludge in the gallbladder, no evidence of cholecystitis or dilation of the bile ducts, fatty infiltration of the liver without evidence of cirrhosis. Vitamin B12 level was about 800. Improving bilirubin. Blood culture results pending. Continue cefazolin IV for now. Physical exam Head: Atraumatic, normal inspection. Eyes: normal appearance, no scleral icterus. Neck: full ROM Respiratory: No respiratory distress Cardiovascular: Regular rhythm, S1, S2. GI/Abdominal: soft, nontender, no guarding. Extremities: right foot edema, warmth and tenderness. Neurological: CN II-XII intact, intact motor, intact sensation. Psychiatric: Normal mood Skin: Improving cellulitis of the right foot. Constitutional Vitals: Vital Signs Temp Pulse Resp BP Pulse Ox O2 Del Method O2 Flow Rate 99.3 F H 92 H 20 110/76 98 2 10/16/22 12:01 10/16/22 12:01 10/16/22 12:01 10/16/22 12:01 10/16/22 12:01 10/16/22 08:07 10/16/22 02:00 Period Temp Pulse Resp BP Sys/Garcia Pulse Ox O2 Del Method O2 Flow Rate Last 24 Hr 97.8 F-102.7 F 25-188 14-34 78-153/58-142 91-100 Nasal Cannula-Room Air 2-2 Intake and Output 10/16/22 10/16/22 10/16/22 03:59 11:59 19:59 Intake Total 2686 1585 0 Output Total 650 175 Balance 2036 1410 0 Weight 80.014 kg Intake & Output: Intake & Output 10/16/22 10/16/22 10/16/22 03:59 11:59 19:59 Intake Total 2686 1585 0 Output Total 650 175 Balance 2036 1410 0 Weight 80.014 kg Intake: IV 2686 1585 0 Sodium Chloride 0.9% 1,000 ml @ 2000 762 0 75 mls/hr IV .[id number] [facility] Rx#: [id number] Cordarone 150 mg In Dextrose 5% 53 in Water 50 ml @ 300 mls/hr IV ONCE ONE Rx#:[id number] Nexterone 360 mg In Premix 1 196 Bag @ 0.5 MG/MIN 16.667 mls/hr IV .Q12H [facility] Rx#:[id number] Potassium Chloride 40 Meq In 520 520 Dextrose 5% in Water 500 ml @ 130 mls/hr IV ONCE ONE Rx#: [id number] Vitamin B1 300 mg In Sodium 51 54 Chloride 0.9% 50 ml @ 50 mls/hr IV Q8H [facility] Rx#:[id number] Output: Urine Catheter Amount 650 175 Other: Urine Appearance Cloudy Clear Urine Color Dark Tesha Brown Urine Odor Normal Stool Size Moderate Stool Color Brown Stool Consistency Liquid Loose # Bowel Movements 1 # of times incontinent of 1 Bowels OBJ DATA Labs CBC & Chem 7: 10/16/22 05:48 10/16/22 05:49 Labs: Abnormal Lab Results 10/16/22 10/16/22 10/15/22 05:49 05:48 18:30 RBC 2.68 L Hgb 9.8 L Hct 29.5 L POC Hct MCV 110.1 H MCH 36.6 H RDW 15.9 H Plt Count 88 L MPV 12.7 H Immature Gran % (Auto) 0.6 H Travis % (Auto) Lymph # (Auto) 1.00 L Travis # (Auto) Immature Gran # POC PT D-Dimer POC VBG pH POC VBG pCO2 at Temp POC Venous O2 Sat Sodium 132 L POC Potassium BUN 7 L Glucose 113 H Calcium 6.8 L POC WB Ioniz Calcium Phosphorus 2.2 L Magnesium 1.5 L Total Bilirubin 5.0 H Direct Bilirubin 3.6 H GGT 317 H AST 59 H Lactate Dehydrogenase 228 H C-Reactive Protein 10.50 H NT-Pro-B Natriuret Pep Total Protein 5.6 L Albumin 2.5 L Albumin/Globulin Ratio 0.8 L TSH 10/15/22 10/15/22 10/15/22 18:30 18:25 17:52 RBC Hgb Hct POC Hct 31.0 L MCV MCH RDW Plt Count MPV Immature Gran % (Auto) Travis % (Auto) Lymph # (Auto) Travis # (Auto) Immature Gran # POC PT 14.8 H D-Dimer 4.28 H POC VBG pH POC VBG pCO2 at Temp POC Venous O2 Sat Sodium POC Potassium 2.6 L* BUN Glucose Calcium POC WB Ioniz Calcium 0.91 L Phosphorus Magnesium Total Bilirubin Direct Bilirubin GGT AST Lactate Dehydrogenase C-Reactive Protein NT-Pro-B Natriuret Pep Total Protein Albumin Albumin/Globulin Ratio TSH 10/15/22 10/15/22 10/15/22 17:48 16:10 16:10 RBC 2.90 L Hgb 10.9 L Hct 31.3 L POC Hct MCV 107.9 H MCH 37.6 H RDW 15.6 H Plt Count 77 L MPV 12.7 H Immature Gran % (Auto) 1.2 H Travis % (Auto) 12.6 H Lymph # (Auto) 1.20 L Travis # (Auto) 0.95 H Immature Gran # 0.09 H POC PT D-Dimer POC VBG pH 7.50 H POC VBG pCO2 at Temp 32.2 L POC Venous O2 Sat 75.0 H Sodium POC Potassium BUN Glucose Calcium POC WB Ioniz Calcium Phosphorus Magnesium 0.8 L* Total Bilirubin 6.1 H Direct Bilirubin 3.9 H GGT AST 69 H Lactate Dehydrogenase C-Reactive Protein NT-Pro-B Natriuret Pep 3197.0 H Total Protein Albumin 3.1 L Albumin/Globulin Ratio TSH 16.94 H Meds: Medications Acetaminophen (Acetaminophen 325 Mg Tablet) 650 mg PO Q6HP PRN; Protocol PRN Reason: Per Pain Protocol/Fever > 101 Last Admin: 10/16/22 09:15 Dose: 650 mg Albuterol Sulfate (Albuterol Sulfate 2.5 Mg/3 Ml Nebulizer) 2.5 mg NEB Q2HP PRN PRN Reason: dyspnea Cefazolin Sodium (Cefazolin 1 Gm Vial) 2 gm IV Q8H [facility] Last Admin: 10/16/22 07:40 Dose: 2 gm Cyanocobalamin (Cyanocobalamin (Vitamin B-12) 500 Mcg Tablet) 500 mcg PO DAILY [facility] Last Admin: 10/16/22 09:14 Dose: 500 mcg Docusate Sodium (Docusate Sodium 100 Mg Capsule) 100 mg PO BID [facility] Last Admin: 10/16/22 07:13 Dose: Not Given Enoxaparin Sodium (Enoxaparin 40 Mg/0.4 Ml Syringe) 40 mg SQ DAILY [facility] Last Admin: 10/16/22 09:14 Dose: 40 mg Fentanyl (Fentanyl 100 Mcg/2 Ml Vial) 25 mcg IV Q1HP PRN; Protocol PRN Reason: Per Pain Protocol Last Admin: 10/16/22 07:46 Dose: 25 mcg Folic Acid (Folic Acid 1 Mg Tablet) 1 mg PO DAILY [facility] Last Admin: 10/16/22 09:14 Dose: 1 mg Haloperidol Lactate (Haloperidol Lactate 5 Mg/Ml Vial) 2 mg IV Q4HP PRN PRN Reason: ANXIETY/SEDATION Thiamine HCl 300 mg/ Sodium (Chloride) 53 mls @ 50 mls/hr IV Q8H [facility] Stop: 10/20/22 21:59 Last Infusion: 10/16/22 11:51 Dose: 50 mls/hr Sodium Chloride (Sodium Chloride 0.9%) 1,000 mls @ 75 mls/hr IV .[id number] [facility] Last Infusion: 10/16/22 12:28 Dose: 75 mls/hr Phenylephrine HCl 20 mg/ (Sodium Chloride) 250 mls @ 30.005 mls/hr IV Q8HP PRN; Protocol PRN Reason: Hypotension Sodium Chloride (Sodium Chloride 0.9%) 250 mls @ 20 mls/hr IV .[id number] [facility]; Protocol Last Admin: 10/16/22 11:39 Dose: Not Given Ketorolac Tromethamine (Ketorolac 30 Mg/Ml Vial) 15 mg IV Q6HP PRN PRN Reason: Pain Stop: 10/17/22 19:54 Last Admin: 10/15/22 22:53 Dose: 15 mg Lactulose (Lactulose 20 Gm/30 Ml Oral.Hanh) 10 gm PO DAILYP PRN PRN Reason: Constipation Lorazepam (Lorazepam 2 Mg/Ml Vial) 0 mg IV UD PRN; Protocol PRN Reason: Alcohol Withdrawal/Assess CIWA Metoprolol Tartrate (Metoprolol Tartrate 25 Mg Tablet) 25 mg PO BID [facility] Last Admin: 10/16/22 12:29 Dose: 25 mg Ondansetron HCl (Ondansetron 4 Mg/2 Ml Vial) 4 mg IV Q4HP PRN; Protocol PRN Reason: Nausea And Vomiting Potassium Chloride (Potassium Chloride 20 Meq Tablet) [facility]: 10/20/22 07:59 Last Admin: 10/16/22 09:14 Dose: 40 meq Senna (Sennosides 1 Tablet) 2 tab PO HSP PRN PRN Reason: Constipation Sodium Chloride (0.9 % Sodium Chloride 10 Ml Syringe) 10 ml IV Q8 [facility] Last Admin: 10/16/22 05:56 Dose: Not Given Sodium Chloride (0.9 % Sodium Chloride 10 Ml Syringe) 10 ml IV Q8 [facility] Last Admin: 10/16/22 05:56 Dose: Not Given A/P Narrative A/P Narrative: Assessment: 67-year-old male with a history of severe alcohol use disorder complicated by cognitive impairment, hypothyroidism, BPH, degenerative disc disease was brought to the emergency department by concerned family members due to generalized weakness, inability to manage ADLs and lower extremity edema. In the emergency department, the patient was found to have cellulitis, severe hypokalemia and severe hypomagnesemia. Chest x-ray did not show any infiltrates. Lactic acid was normal. #Nonpurulent cellulitis of right foot #Paroxysmal atrial fibrillation #Resolved hypokalemia #Hypomagnesemia #Severe alcohol use disorder #Macrocytic anemia likely secondary to alcohol use #Thrombocytopenia likely secondary to alcohol use #Elevated bilirubin likely secondary to alcohol use #Hypothyroidism, poorly controlled likely secondary to noncompliance #Reported chronic hepatitis C #Probable malnourishment #Generalized weakness #Cognitive impairment likely secondary to chronic alcohol use Plan -Cefazolin 2 g IV daily hours -Follow blood cultures x2. -Replace electrolytes as needed. -CIWA protocol with Ativan IV as needed. -Vitamin supplementation including high-dose IV thiamine. -IV fluid today then probably discontinue, monitor volume status. -Transthoracic echocardiogram. -monitoring coordinator. -Regular diet. -PT and OT consult. -Start levothyroxine 125 mcg daily. -Home medication reconciliation. -DVT prophylaxis: Lovenox as long as platelets greater than 50,000. -CODE STATUS: Full -Disposition: Probably home with 24/ family supervision. Time Spent With Patient Time: Total time spent is greater than 50% in coordination of care (as documented) at patient's floor/unit and/or counseling patient:
[2022-10-16 15:03] LABS: Appearance,Urine CLOUDY (Clear); Bacteria,Urine MANY /hpf (0); Bilirubin,Urine Negative (Negative); Color,Urine AMBER; Culture Indicated,Urine Yes; Glucose,Urine (UA) Negative (Negative); Ketones,Urine Negative (Negative); Leukocyte Esterase,Urine Negative /uL (Negative); Nitrate,Urine POS (Negative); Protein,Urine Negative (Negative); Specific Gravity,Urine 1.016 (1.000-1.035); Urine Blood Negative (Negative); Urine RBC 0 /hpf (0-3); Urine Squamous Epithelial Cell 0 /hpf (0-4); Urine WBC 1 /hpf (0-4)
[2022-10-16] MEDS: 0.9 % SODIUM CHLORIDE 1,000 ML IV SCH (15:23)
[2022-10-16] MEDS ORDERED: VANCOMYCIN PER PHARMACY IV ONE (19:37)
[2022-10-16] MEDS: VANCOMYCIN 1,000 MG in 0.9 % SODIUM CHLORIDE 250 ML IV SCH (22:20)
[2022-10-17] MEDS: THIAMINE 300 MG in 0.9 % SODIUM CHLORIDE 50 ML IV SCH ×3 (06:03→20:44)
[2022-10-17] MEDS: 0.9 % SODIUM CHLORIDE 1,000 ML IV SCH ×3 (06:03→13:38)
[2022-10-17] MEDS: 0.9 % SODIUM CHLORIDE 10 ML SYRINGE IV SCH ×6 (06:04→20:25)
[2022-10-17 06:29] LABS: Basophils # (Auto) 0.04 K/mcL (0.00-0.30); Basophils % (Auto) 0.7 % (0.0-2.0); Eosinophils # (Auto) 0.09 K/mcL (0.00-0.70); Eosinophils % (Auto) 1.6 % (0.0-7.0); Hematocrit 32.8 % (40.1-51.0); Hemoglobin 10.1 g/dL (13.7-17.5); Lymphocytes # (Auto) 1.12 K/mcL (1.50-4.80); Lymphocytes % (Auto) 20.2 % (15.5-49.0); Mean Cell Volume 119.7 fL (80.0-100.0); Mean Corpuscular HGB Conc 30.8 g/dL (31.0-36.0); Mean Platelet Volume 11.8 fL (8.8-12.5); Monocytes # (Auto) 0.55 K/mcL (0.10-0.90); Monocytes % (Auto) 9.9 % (1.0-12.0); Neutrophils % (Auto) 67.1 % (38.0-78.0); Platelet Count 105 K/mcL (140-440); RBC 2.74 M/mcL (4.63-6.08); Red Cell Distribution Width 16.5 % (11.5-14.5); WBC 5.5 K/mcL (4.5-11.0)
[2022-10-17] MEDS ORDERED: VANCOMYCIN PER PHARMACY IV SCH (07:45)
[2022-10-17 07:57] LABS: ALT/SGPT 15 U/L (<40); AST/SGOT 58 U/L (<40); Albumin 2.6 gm/dL (3.2-5.2); Albumin/Globulin Ratio 0.9 (1.0-2.3); Alkaline Phosphatase 106 U/L (39-117); Bilirubin,Direct 1.8 mg/dL (<0.3); Bilirubin,Total 2.9 mg/dL (0.1-1.0); Blood Urea Nitrogen 7 mg/dL (8-23); Carbon Dioxide 19 mmol/L (22-30); Chloride 106 mmol/L (96-108); Globulin 2.8 gm/dL (2.2-3.7); Glomerular Filtration Rate 105; Glucose 94 mg/dL (70-105); Lactate Dehydrogenase 218 U/L (135-225); Phosphorous 1.5 mg/dL (2.5-4.5); Triglycerides 139 mg/dL (<150); Uric Acid 4.9 mg/dL (2.5-8.0)
[2022-10-17] MEDS: CYANOCOBALAMIN (VITAMIN B-12) 500 MCG TABLET PO SCH (08:14)
[2022-10-17] MEDS: LEVOTHYROXINE 125 MCG TABLET PO SCH (08:14)
[2022-10-17] MEDS: ENOXAPARIN 40 MG/0.4 ML SYRINGE SQ SCH (08:14)
[2022-10-17] MEDS: POTASSIUM CHLORIDE 20 MEQ TABLET PO SCH (08:14)
[2022-10-17] MEDS: FOLIC ACID 1 MG TABLET PO SCH (08:15)
[2022-10-17] MEDS ORDERED: METOPROLOL TARTRATE 50 MG TABLET PO SCH (09:00)
[2022-10-17] MEDS ORDERED: IOPAMIDOL 100 ML BOTTLE IV ONE (09:02)
[2022-10-17] MEDS: metroNIDAZOLE 500 MG/100 ML BAG IV SCH ×3 (10:03→21:38)
[2022-10-17] MEDS: cefTRIAXone 2 GM in DEXTROSE 5% IN WATER 50 ML IV SCH (10:03)
[2022-10-17] MEDS: VANCOMYCIN 1,000 MG in 0.9 % SODIUM CHLORIDE 250 ML IV SCH ×2 (10:04→20:23)
[2022-10-17] MEDS ORDERED: POTASSIUM PHOSPHATE 40 MEQ in DEXTROSE 5% IN WATER 500 ML IV ONE (10:26)
[2022-10-17] MEDS ORDERED: MAGNESIUM SULFATE 2 GM/50 ML BAG IV ONE (10:26)
[2022-10-17 10:54] LABS: Amylase 29 U/L (28-100)
[2022-10-17] MEDS: LOPERAMIDE 2 MG CAPSULE PO PRN ×4 (12:25→23:43)
--- NOTE | 2022-10-17 13:02 | General Surgery Consult Note ---
HPI Date of Consult Consult Date: 10/17/22 Requesting physician: Tigao Shields Primary Care Provider: Lester Marin Consult Narrative Patient Information: Note initiated : 10/17/22 at 1:00 pm Service Date, if different from initiated Date: [] Patient: Sandip Montana 67 y/o M admitted on 10/15/22 for Weakness. Chief Complaint: [] Asked to see Sandip in consultation today after recent admission for a cellulitis along with severe electrolyte abnormalities. He has had LFT changes as well prompting both a RUQ US as well as a CT Scan demonstrating only some sludge without any evidence of cholecystitis on US but apparently some wall thickening on CT although that report is not yet available. He has had no abdominal pain and has not been tender on exam and abdominal symptomatology has not been part of his presentation. He has appeared chronically ill and to be in poor and n eglected health generally and is a known drinker as well. He denies any prior abdominal surgery and denies any current abdominal pain. cc:: CC: Tiago Shields MD Review of Systems All systems: reviewed and no additional remarkable complaints except as stated PFSH PFSH All Active Problems (Updated 10/17/22 @ 13:48 by Davie Child MD) Gallbladder anomaly (Acute) Cellulitis (Acute) Hypomagnesemia (Acute) Acute hypokalemia (Acute) Social History smoking status: Current every day smoker MEDS/ALLERGIES Home Medications and Allergies Home Medications Medication Instructions Recorded Confirmed Type Unobtainable 10/15/22 10/15/22 History Allergies Allergy/AdvReac Type Severity Reaction Status Date / Time No Known Drug Allergies Allergy Verified 10/15/22 15:23 Physical Examination Vital Signs Vital signs: Temp Pulse Resp BP Pulse Ox O2 Del Method O2 Flow Rate 99.9 F H 100 H 28 H 135/88 97 2 10/17/22 12:16 10/17/22 12:16 10/17/22 12:16 10/17/22 12:16 10/17/22 12:16 10/17/22 12:16 10/16/22 02:00 General physical appearance General physical exam: other (appears chronically ill, conversant, able to answer some questions ) Eyes Eye exam: normal ocular movement ENT ENT exam: normal pinna and normal nares Head Head exam IM: Present atraumatic, normal inspection and normocephalic Neck Neck exam: trachea midline and no lymphadenopathy Cardiovascular Cardiovascular exam IM: Present normal rate and rhythm and RRR Respiratory Respiratory exam: other (normal effort without distress ) Abdomen Abdomen: Present soft (soft, protuberant, non tender, no RUQ tenderness) Integumentary Integumentary: Present other (normal appearing intact skin ) Neurologic Neurologic: Present other (conversant, somewhat confused, NAD, motor appears grossly intact ) Results Labs Result diagrams: 10/17/22 05:50 10/17/22 06:58 Labs: Abnormal lab results 10/16/22 10/17/22 10/17/22 Range/Units 14:33 05:50 06:58 RBC 2.74 L (4.63-6.08) M/mcL Hgb 10.1 L (13.7-17.5) g/dL Hct 32.8 L (40.1-51.0) % MCV 119.7 H (80.0-100.0) fL MCH 36.9 H (26.0-34.0) pg MCHC 30.8 L (31.0-36.0) g/dL RDW 16.5 H (11.5-14.5) % Plt Count 105 L (140-440) K/mcL Lymph # (Auto) 1.12 L (1.50-4.80) K/mcL Carbon Dioxide 19 L (22-30) mmol/L BUN 7 L (8-23) mg/dL Creatinine 0.6 L (0.7-1.2) mg/dL Calcium 7.0 L (8.6-10.4) mg/dL Phosphorus 1.5 L (2.5-4.5) mg/dL Total Bilirubin 2.9 H (0.1-1.0) mg/dL Direct Bilirubin 1.8 H (<0.3) mg/dL GGT 333 H (8-61) U/L AST 58 H (<40) U/L Total Protein 5.4 L (5.9-8.4) gm/dL Albumin 2.6 L (3.2-5.2) gm/dL Albumin/Globulin Ratio 0.9 L (1.0-2.3) Urine Appearance Cloudy A (Clear) Urine Nitrate Pos A (Negative) Urine Urobilinogen 4.0 A mg/dL Urine Bacteria Many A (0) /hpf Diabetes panel 10/17/22 10/17/22 Range/Units 05:50 06:58 Sodium TNP 135 Potassium TNP 3.6 Chloride TNP 106 Carbon Dioxide TNP 19 L BUN TNP 7 L Creatinine TNP 0.6 L Glucose TNP 94 Calcium TNP 7.0 L AST TNP 58 H ALT TNP 15 Alkaline Phosphatase TNP 106 Total Protein TNP 5.4 L Albumin TNP 2.6 L Triglycerides TNP 139 Calcium panel 10/17/22 10/17/22 Range/Units 05:50 06:58 Calcium TNP 7.0 L Phosphorus TNP 1.5 L Albumin TNP 2.6 L Pituitary panel 10/17/22 10/17/22 Range/Units 05:50 06:58 Sodium TNP 135 Potassium TNP 3.6 Chloride TNP 106 Carbon Dioxide TNP 19 L BUN TNP 7 L Creatinine TNP 0.6 L Glucose TNP 94 Calcium TNP 7.0 L Adrenal panel 10/17/22 10/17/22 Range/Units 05:50 06:58 Sodium TNP 135 Potassium TNP 3.6 Chloride TNP 106 Carbon Dioxide TNP 19 L BUN TNP 7 L Creatinine TNP 0.6 L Glucose TNP 94 Calcium TNP 7.0 L Total Bilirubin TNP 2.9 H AST TNP 58 H ALT TNP 15 Alkaline Phosphatase TNP 106 Total Protein TNP 5.4 L Albumin TNP 2.6 L All other labs normal. A/P Assessment and plan (1) Gallbladder anomaly: Status: Acute Plan Radiographic Abnormalities of the Gallbladder Probable Cholelithiasis with some evidence of CBD obstruction and/or cirrhosis and chronic liver dysfunction on recent laboratory analysis He has no pain or tenderness at this time so Acute Cholecystitis seems very unlikely but could have Chronic Cystic Duct Obstruction and Chronic Cholecystitis Continue IV ABs for now and check MRCP tomorrow to assure no evidence of r etained CBD Stones and to rule out any evidence of possible Cholangitis and re check LFTs at that time as well Time Spent With Patient Time: Total time spent is greater than 50% in coordination of care (as documented) at patient's floor/unit and/or counseling patient:
--- NOTE | 2022-10-17 14:56 | Internal Med Progress Note ---
SUBJECTIVE Subjective Patient information: Note initiated : 10/17/22 at 2:55 pm Service Date, if different from initiated Date: [] Patient: Sandip Montana 67 y/o M admitted on 10/15/22 for Weakness. Chief Complaint: [] Interval history: Mr. Montana is a 67 year old M male with a historyof severe alcohol use disorder, cognitive impairment, hypothyroidism, BPH, degenerative disc disease who is visiting family and was brought to the ED by family due to concerns of generalized weakness and inability to manage his activities of daily living as well as lower extremity edema. The patient was found to have cellulitis of his right foot in the ED as well as hypokalemia and hypomagnesemia. Per report, the patient consumes a significant amount of alcohol daily most the time but has not consumed alcohol for several days. He is apparently homebound and requires a caregiver at baseline. The patient lives in [place] and came to spent the holiday weekend with family. Hospital medicine was asked to admit the patient for cellulitis, electrolyte replacement and supportive cares. The patient is unable to provide any history as he received Ativan in the ED and was asleep when I examined him. The ED provider did discuss CODE STATUS with his family nancie logan and the patient is full code. 10/16 Overnight the patient went into atrial fibrillation with rapid ventricular response, started a amiodarone bolus followed by infusion and the patient converted back to sinus rhythm. This morning started Lopressor 25 mg twice daily and discontinued the amiodarone infusion. The patient is alert and oriented today. Cellulitis improving since admission. Replaced magnesium, potassium normal today. Radiology reports of the foot x-ray was not suggestive of osteomyelitis, no fractures noted. CTA chest did not show any pulmonary emboli, there was interstitial lung disease in the lateral basal segment of the left lower lobe which could be inflammation or fibrosis. Liver ultrasound revealed echogenic sludge in the gallbladder, no evidence of cholecystitis or dilation of the bile ducts, fatty infiltration of the liver without evidence of cirrhosis. Vitamin B12 level was about 800. Improving bilirubin. Urine culture growing Enterococcus faecium, started vancomycin IV per pharmacy. Also on ceftriaxone. Roper catheter removed. 10/17 The patient continues to have fevers overnight. Today he is having diarrhea, check C. difficile screen and that was negative. SARS-CoV-2, influenza A, influenza B, RSV PCR negative. Blood cultures showing no growth to date. Cellulitis of the right foot is improving, query possibility of gout in that foot as well. Added Toradol IV as needed. CT abdomen pelvis with contrast today was suspicious for cholecystitis. Added metronidazole IV. General surgery consulted, recommended continuing IV antibiotics and obtaining an MRCP. Heart rate increased later in the evening, repeat EKG showed A. fib with RVR. T ransthoracic echocardiogram results available and showed an LVEF of 35 to 40%, normal right ventricular size and function, mild to moderate mitral regurgitation, mild to moderate tricuspid regurgitation. Switch beta-blockers to Toprol 50 mg at bedtime. Added digoxin IV load, monitoring for effect. If no effect then will likely start amiodarone. Blood pressure on the low side so holding off on RAAS inhibition at this time. Obtain ultrasound of right MTP joint to evaluate for effusion. Physical exam Head: Atraumatic, normal inspection. Eyes: normal appearance, no scleral icterus. Neck: full ROM Respiratory: No respiratory distress Cardiovascular: Regular rhythm, S1, S2. GI/Abdominal: soft, nontender, no guarding. Extremities: right foot edema, warmth and tenderness. Neurological: CN II-XII intact, intact motor, intact sensation. Psychiatric: Normal mood Skin: Improving cellulitis of the right foot. Constitutional Vitals: Vital Signs Temp Pulse Resp BP Pulse Ox O2 Del Method O2 Flow Rate 99.9 F H 94 H 23 H 105/82 98 2 10/17/22 12:16 10/17/22 13:58 10/17/22 13:58 10/17/22 13:58 10/17/22 13:58 10/17/22 13:58 10/16/22 02:00 Period Temp Pulse Resp BP Sys/Garcia Pulse Ox O2 Del Method O2 Flow Rate Last 24 Hr 99.8 F-101.2 F 46-156 21-33 90-135/56-89 94-99 Room Air-Room Air Intake and Output 10/17/22 10/17/22 10/17/22 03:59 11:59 19:59 Intake Total 53 1703 583 Output Total 375 151 Balance 53 1328 432 Weight 79.469 kg 79.469 kg Patient Weight 10/18/22 03:59 Weight 79.469 kg Intake & Output: Intake & Output 10/17/22 10/17/2210/17/23 03:59 11:59 19:59 Intake Total 53 1703 583 Output Total 375 151 Balance 53 1328 432 Weight 79.469 kg 79.469 kg Intake: IV 53 1703 103 Sodium Chloride 0.9% 1,000 ml @ 1000 75 mls/hr IV .[id number] [facility] Rx#: [id number] Vitamin B1 300 mg In Sodium 53 53 53 Chloride 0.9% 50 ml @ 50 mls/hr IV Q8H [facility] Rx#:[id number] Vancomycin 1,000 mg In Sodium 500 Chloride 0.9% 250 ml @ 250 mls/ hr IV Q12H [facility] Rx#:[id number] Rocephin 2 gm In Dextrose 5% in 50 Water 50 ml @ 100 mls/hr IV Q24H [facility] Rx#:[id number] Oral 480 Output: Urine Catheter Amount 375 Void Amount 150 # of times incontinent of urine 1 Other: Meal Lunch Percent of Meal Consumed 75% Feeding Ability Assist with Tray Set Up Urine Appearance Cloudy Cloudy Clear Urine Color Brown Brown Dark Yellow Urine Odor Normal Stool Size Large Small Moderate Stool Color Brown Brown Yellow Green Green Stool Consistency Soft Watery Liquid Watery Loose # Bowel Movements 1 # of times incontinent of 1 2 Bowels OBJ DATA Labs CBC & Chem 7: 10/17/22 05:50 10/17/22 06:58 Labs: Abnormal Lab Results 10/17/22 10/17/22 10/16/22 06:58 05:50 14:33 RBC 2.74 L Hgb 10.1 L Hct 32.8 L POC Hct MCV 119.7 H MCH 36.9 H MCHC 30.8 L RDW 16.5 H Plt Count 105 L MPV Immature Gran % (Auto) [place] % (Auto) Lymph # (Auto) 1.12 L [place] # (Auto) Immature Gran # POC PT D-Dimer POC VBG pH POC VBG pCO2 at Temp POC Venous O2 Sat Sodium POC Potassium Carbon Dioxide 19 L BUN 7 L Creatinine 0.6 L Glucose Calcium 7.0 L POC WB Ioniz Calcium Phosphorus 1.5 L Magnesium Total Bilirubin 2.9 H Direct Bilirubin 1.8 H GGT 333 H AST 58 H Lactate Dehydrogenase C-Reactive Protein NT-Pro-B Natriuret Pep Total Protein 5.4 L Albumin 2.6 L Albumin/Globulin Ratio 0.9 L TSH Urine Appearance Cloudy A Urine Nitrate Pos A Urine Urobilinogen 4.0 A Urine Bacteria Many A 10/16/22 10/16/22 10/15/22 05:49 05:48 18:30 RBC 2.68 L Hgb 9.8 L Hct 29.5 L POC Hct MCV 110.1 H MCH 36.6 H MCHC RDW 15.9 H Plt Count 88 L MPV 12.7 H Immature Gran % (Auto) 0.6 H [place] % (Auto) Lymph # (Auto) 1.00 L [place] # (Auto) Immature Gran # POC PT D-Dimer POC VBG pH POC VBG pCO2 at Temp POC Venous O2 Sat Sodium 132 L POC Potassium Carbon Dioxide BUN 7 L Creatinine Glucose 113 H Calcium 6.8 L POC WB Ioniz Calcium Phosphorus 2.2 L Magnesium 1.5 L Total Bilirubin 5.0 H Direct Bilirubin 3.6 H GGT 317 H AST 59 H Lactate Dehydrogenase 228 H C-Reactive Protein 10.50 H NT-Pro-B Natriuret Pep Total Protein 5.6 L Albumin 2.5 L Albumin/Globulin Ratio 0.8 L TSH Urine Appearance Urine Nitrate Urine Urobilinogen Urine Bacteria 10/15/22 10/15/22 10/15/22 18:30 18:25 17:52 RBC Hgb Hct POC Hct 31.0 L MCV MCH MCHC RDW Plt Count MPV Immature Gran % (Auto) [place] % (Auto) Lymph # (Auto) [place] # (Auto) Immature Gran # POC PT 14.8 H D-Dimer 4.28 H POC VBG pH POC VBG pCO2 at Temp POC Venous O2 Sat Sodium POC Potassium 2.6 L* Carbon Dioxide BUN Creatinine Glucose Calcium POC WB Ioniz Calcium 0.91 L Phosphorus Magnesium Total Bilirubin Direct Bilirubin GGT AST Lactate Dehydrogenase C-Reactive Protein NT-Pro-B Natriuret Pep Total Protein Albumin Albumin/Globulin Ratio TSH Urine Appearance Urine Nitrate Urine Urobilinogen Urine Bacteria 10/15/22 10/15/22 10/15/22 17:48 16:10 16:10 RBC 2.90 L Hgb 10.9 L Hct 31.3 L POC Hct MCV 107.9 H MCH 37.6 H MCHC RDW 15.6 H Plt Count 77 L MPV 12.7 H Immature Gran % (Auto) 1.2 H [place] % (Auto) 12.6 H Lymph # (Auto) 1.20 L [place] # (Auto) 0.95 H Immature Gran # 0.09 H POC PT D-Dimer POC VBG pH 7.50 H POC VBG pCO2 at Temp 32.2 L POC Venous O2 Sat 75.0 H Sodium POC Potassium Carbon Dioxide BUN Creatinine Glucose Calcium POC WB Ioniz Calcium Phosphorus Magnesium 0.8 L* Total Bilirubin 6.1 H Direct Bilirubin 3.9 H GGT AST 69 H Lactate Dehydrogenase C-Reactive Protein NT-Pro-B Natriuret Pep 3197.0 H Total Protein Albumin 3.1 L Albumin/Globulin Ratio TSH 16.94 H Urine Appearance Urine Nitrate Urine Urobilinogen Urine Bacteria Meds: Medications Acetaminophen (Acetaminophen 325 Mg Tablet) 650 mg PO Q6HP PRN; Protocol PRN Reason: Per Pain Protocol/Fever > 101 Last Admin: 10/16/22 18:01 Dose: 650 mg Albuterol Sulfate (Albuterol Sulfate 2.5 Mg/3 Ml Nebulizer) 2.5 mg NEB Q2HP PRN PRN Reason: dyspnea Cyanocobalamin (Cyanocobalamin (Vitamin B-12) 500 Mcg Tablet) 500 mcg PO DAILY [facility] Last Admin: 10/17/22 08:14 Dose: 500 mcg Enoxaparin Sodium (Enoxaparin 40 Mg/0.4 Ml Syringe) 40 mg SQ DAILY [facility] Last Admin: 10/17/22 08:14 Dose: 40 mg Folic Acid (Folic Acid 1 Mg Tablet) 1 mg PO DAILY [facility] Last Admin: 10/17/22 08:15 Dose: 1 mg Haloperidol Lactate (Haloperidol Lactate 5 Mg/Ml Vial) 2 mg IV Q4HP PRN PRN Reason: ANXIETY/SEDATION Thiamine HCl 300 mg/ Sodium (Chloride) 53 mls @ 50 mls/hr IV Q8H [facility] Stop: 10/20/22 21:59 Last Infusion: 10/17/22 13:38 Dose: Infused Sodium Chloride (Sodium Chloride 0.9%) 1,000 mls @ 75 mls/hr IV .[id number] [facility] Last Admin: 10/17/22 13:38 Dose: Not Given Vancomycin HCl 1,000 mg/ (Sodium Chloride) 250 mls @ 250 mls/hr IV Q12H [facility] Last Infusion: 10/17/22 11:13 Dose: Infused Ceftriaxone Sodium 2 gm/ (Dextrose) 50 mls @ 100 mls/hr IV Q24H [facility]; Protocol Last Infusion: 10/17/22 11:13 Dose: Infused Metronidazole (Flagyl) 500 mg in 100 mls @ 100 mls/hr IV Q8H [facility]; Protocol Last Infusion: 10/17/22 11:13 Dose: Infused Ketorolac Tromethamine (Ketorolac 30 Mg/Ml Vial) 15 mg IV Q6HP PRN PRN Reason: Pain Stop: 10/17/22 19:54 Last Admin: 10/15/22 22:53 Dose: 15 mg Lactulose (Lactulose 20 Gm/30 Ml Oral.Hanh) 10 gm PO DAILYP PRN PRN Reason: Constipation Levothyroxine Sodium ([facility]othyroxine 125 Mcg Tablet) [facility] Last Admin: 10/17/22 08:14 Dose: 125 mcg Loperamide HCl (Loperamide 2 Mg Capsule) 2 mg PO Q4HP PRN PRN Reason: Diarrhea Last Admin: 10/17/22 12:25 Dose: 2 mg Lorazepam (Lorazepam 2 Mg/Ml Vial) 0 mg IV UD PRN; Protocol PRN Reason: Alcohol Withdrawal/Assess CIWA Metoprolol Tartrate (Metoprolol Tartrate 50 Mg Tablet) 50 mg PO BID [facility] Last Admin: 10/17/22 08:15 Dose: 50 mg Ondansetron HCl (Ondansetron 4 Mg/2 Ml Vial) 4 mg IV Q4HP PRN; Protocol PRN Reason: Nausea And Vomiting Pneumococcal Polyvalent Vaccine (Pneumococcal 23-Magali P-Sac Vac 0.5 Ml Syringe) 0.5 ml IM .ONCE ONE Stop: 10/20/22 10:01 Potassium Chloride (Potassium Chloride 20 Meq Tablet) 40 meq PO [facility] Stop: 10/20/22 07:59 Last Admin: 10/17/22 08:14 Dose: 40 meq Senna (Sennosides 1 Tablet) 2 tab PO [facility] PRN PRN Reason: Constipation Sodium Chloride (0.9 % Sodium Chloride 10 Ml Syringe) 10 ml IV Q8 [facility] Last Admin: 10/17/22 13:38 Dose: Not Given Sodium Chloride (0.9 % Sodium Chloride 10 Ml Syringe) 10 ml IV Q8 [facility] Last Admin: 10/17/22 14:22 Dose: 10 ml Vancomycin HCl (Vancomycin Per Pharmacy) 1 [place] [facility] [place] Protocol A/P Narrative A/P Narrative: Assessment: 67-year-old male with a history of severe alcohol use disorder complicated by cognitive impairment, hypothyroidism, BPH, degenerative disc disease was brought to the emergency department by concerned family members due to generalized weakness, inability to manage ADLs and lower extremity edema. In the emergency department, the patient was found to have cellulitis of his right foot, severe hypokalemia and severe hypomagnesemia. Chest x-ray did not show any infiltrates. Lactic acid was normal. After admission, the patient was found to have atrial fibrillation with rapid ventricular response as well as heart failure with reduced ejection fraction 35 to 40%. Urine culture grew Enterococcus. In spite of broad-spectrum antibiotics, the patient continued to have fevers. PCR testing for SARS-CoV-2, influenza A, influenza B, RSV was negative. A CT abdomen and pelvis was obtained and showed possible cholecystitis. General surgery was consulted and recommended an MRCP. #Nonpurulent cellulitis of right foot #Possible gout of right MTP joint #Atrial fibrillation with RVR #Heart failure with reduced ejection fraction #Possible cholecystitis #Resolved hypokalemia #Hypomagnesemia #Hypophosphatemia #Macrocytic anemia likely secondary to alcohol use #Thrombocytopenia likely secondary to alcohol use #Hypothyroidism, poorly controlled likely secondary to noncompliance #Reported history of chronic hepatitis C #Probable malnourishment #Diarrhea, negative C. difficile screen #Generalized weakness #Probable dementia #Questionable capacity #Severe alcohol use disorder Plan -Vancomycin IV per pharmacy, ceftriaxone and metronidazole IV for now. -MRCP tomorrow per general surgery recommendations. -Right MTP joint ultrasound to evaluate for drainable fluid collection. -Follow blood cultures x2. -Demarcate and monitor right foot cellulitis. -Replace electrolytes as needed. -CIWA protocol with Ativan IV as needed. -Vitamin supplementation including high-dose IV thiamine. -Discontinue IV fluid today, monitor volume status. -Rate control: Toprol 50 mg at bedtime, digoxin IV load, Lopressor IV as needed. -If atrial fibrillation rate control not achieved then will start amiodarone. -Holding off on RAAS inhibition due to low blood pressures. -Analgesics as needed. -quality assurance monitor chassis. -Regular diet. -PT and OT consult. -Continue Levothyroxine 125 mcg daily, unclear what the patient's prior levothyroxine dose was. -Consider telepsychiatry consult for capacity evaluation. -DVT prophylaxis: Lovenox as long as platelets greater than 50,000. -CODE STATUS: Full -Disposition: Low intensity heat rehab versus home with 24/7 family supervision. Time Spent With Patient Time: Total time spent is greater than 50% in coordination of care (as documented) at patient's floor/unit and/or counseling patient:
[2022-10-17] MEDS: ACETAMINOPHEN 325 MG TABLET PO PRN (16:16)
--- NOTE | 2022-10-17 16:42 | Cat Scan Report ---
CLINICAL INFORMATION: Fever COMPARISON: Abdomen and pelvic CT 01/04/[address] 12/24/2021 TECHNIQUE: Following enteric contrast, 80 cc of [id number] were injected intravenously, and 60 seconds later, 0.625 mm helical slices were obtained from the mid heart through the subtrochanteric regions. Following reconstruction, 2.5 mm sagittal, coronal and axial reformatted images were processed and reviewed at bone, lung and soft tissue windows. Five minutes later, 0.625 mm helical slices were obtained from the mid heart through the kidneys and viewed at soft tissue windows.The exam was performed using radiation dose optimization techniques including, but not limited to, automated exposure control, adjustment of the mA and/or kV according to patient size and use of iterative reconstruction technique. FINDINGS: The heart is mildly enlarged. Small bilateral pleural effusions appreciated. Lung bases are clear. Small hiatal hernia again noted. Abdominal images show moderate cirrhotic changes featuring decreased hepatic size, asymmetric caudate lobe enlargement inhomogeneous attenuation and irregularity of the cortical surface. No focal hepatic lesions to suggest hepatoma. Small amount of ascites is present in the upper abdomen with a moderate amount in the true pelvis. Portal vein is normal diameter and tributaries are normal-no varices appreciated. Spleen is normal size and attenuation. The gallbladder wall is mildly thickened with pericholecystic fluid. There are multiple tiny stones in the gallbladder neck. The intrahepatic and common bile ducts are normal caliber: CBD is 5 mm. the pancreas, both adrenal glands, spleen, kidneys are normal. Mild ectasia infrarenal abdominal aorta appreciated with a diameter of 2.4 cm. Pelvic images show mild diffuse wall thickening of urinary bladder. Few diverticula are present in the sigmoid colon, but no evidence of diverticulitis. The remainder of the large bowel, appendix region, small bowel and stomach are grossly normal. Bone windows show chronic bilateral L5-S1 spondylolysis with grade one spinal listhesis and broad disc protrusion resulting in moderate bilateral IV foraminal narrowing exiting L5 nerve root impingement. Small bilateral inguinal hernias contain only mesenteric fat. IMPRESSION: 1. Suspect cholecystitis. Suggest gallbladder ultrasound. 2. Cirrhosis with small/moderate ascites in the deep true pelvis oblique. No evidence of portal hypertension or splenomegaly. 3. Diffuse wall thickening of the urinary bladder which could indicate cystitis or other infiltrative pathology 4. Small bilateral inguinal hernias containing only mesenteric fat. 5. Mild ectasia infrarenal abdominal aorta. Suggest follow-up abdominal aortic ultrasound in two years to ensure the absence of AAA development 6. Small hiatal hernia 7. 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
[2022-10-17] MEDS ORDERED: DIGOXIN 500 MCG/2 ML AMPUL IV ONE (16:54)
[2022-10-17] MEDS ORDERED: METOPROLOL TARTRATE 5 MG/5 ML VIAL IV PRN (17:08)
[2022-10-17] MEDS: METOPROLOL SUCCINATE 50 MG TAB.XL.24H PO SCH (20:23)
[2022-10-17] MEDS: DIGOXIN 500 MCG/2 ML AMPUL IV SCH (23:10)
--- NOTE | 2022-10-18 04:57 | Ultrasound Report ---
CLINICAL INFORMATION: Right first MTP joint pain. Evaluate for soft tissue abscess COMPARISON: None. FINDINGS: In the dorsal soft tissues overlying the first metatarsal, there is a fluid collection with moderate debris. This could represent an infected synovial cyst or abscess. IMPRESSION: Moderate complex fluid collection dorsal soft tissues overlying the first metatarsal. Consider aspiration in the clinical setting Interpreted and Authenticated by: Alec Sanchez 10/18/22
[2022-10-18] MEDS: 0.9 % SODIUM CHLORIDE 10 ML SYRINGE IV SCH ×5 (04:58→20:37)
[2022-10-18] MEDS: LOPERAMIDE 2 MG CAPSULE PO PRN ×2 (05:05→09:13)
[2022-10-18] MEDS: THIAMINE 300 MG in 0.9 % SODIUM CHLORIDE 50 ML IV SCH ×3 (05:05→20:37)
[2022-10-18] MEDS: DIGOXIN 500 MCG/2 ML AMPUL IV SCH (05:05)
[2022-10-18] MEDS: metroNIDAZOLE 500 MG/100 ML BAG IV SCH ×3 (05:13→21:51)
[2022-10-18 06:42] LABS: Basophils # (Auto) 0.04 K/mcL (0.00-0.30); Basophils % (Auto) 0.9 % (0.0-2.0); Eosinophils # (Auto) 0.13 K/mcL (0.00-0.70); Eosinophils % (Auto) 2.8 % (0.0-7.0); Hematocrit 28.1 % (40.1-51.0); Hemoglobin 9.2 g/dL (13.7-17.5); Lymphocytes # (Auto) 0.99 K/mcL (1.50-4.80); Lymphocytes % (Auto) 21.6 % (15.5-49.0); Mean Cell Volume 114.7 fL (80.0-100.0); Mean Corpuscular HGB Conc 32.7 g/dL (31.0-36.0); Mean Platelet Volume 12.1 fL (8.8-12.5); Monocytes # (Auto) 0.67 K/mcL (0.10-0.90); Monocytes % (Auto) 14.6 % (1.0-12.0); Neutrophils % (Auto) 59.9 % (38.0-78.0); Platelet Count 91 K/mcL (140-440); RBC 2.45 M/mcL (4.63-6.08); Red Cell Distribution Width 16.3 % (11.5-14.5); WBC 4.6 K/mcL (4.5-11.0)
[2022-10-18 06:57] LABS: ALT/SGPT 13 U/L (<40); AST/SGOT 53 U/L (<40); Albumin 2.4 gm/dL (3.2-5.2); Albumin/Globulin Ratio 0.9 (1.0-2.3); Alkaline Phosphatase 105 U/L (39-117); Bilirubin,Direct 1.3 mg/dL (<0.3); Bilirubin,Total 2.2 mg/dL (0.1-1.0); Blood Urea Nitrogen 6 mg/dL (8-23); Calcium 7.2 mg/dL (8.6-10.4); Carbon Dioxide 19 mmol/L (22-30); Chloride 106 mmol/L (96-108); Globulin 2.7 gm/dL (2.2-3.7); Glomerular Filtration Rate 105; Glucose 88 mg/dL (70-105); Lactate Dehydrogenase 221 U/L (135-225); Phosphorous 1.9 mg/dL (2.5-4.5); Triglycerides 140 mg/dL (<150); Uric Acid 4.8 mg/dL (2.5-8.0)
[2022-10-18] MEDS ORDERED: POTASSIUM PHOSPHATE 20 MEQ in DEXTROSE 5% IN WATER 250 ML IV ONE (07:10)
[2022-10-18] MEDS: cefTRIAXone 2 GM in DEXTROSE 5% IN WATER 50 ML IV SCH (08:30)
[2022-10-18] MEDS: CYANOCOBALAMIN (VITAMIN B-12) 500 MCG TABLET PO SCH (09:13)
[2022-10-18] MEDS: ENOXAPARIN 40 MG/0.4 ML SYRINGE SQ SCH (09:13)
[2022-10-18] MEDS: LEVOTHYROXINE 125 MCG TABLET PO SCH (09:13)
[2022-10-18] MEDS: POTASSIUM CHLORIDE 20 MEQ TABLET PO SCH (09:13)
[2022-10-18] MEDS: FOLIC ACID 1 MG TABLET PO SCH (09:13)
[2022-10-18] MEDS: ACETAMINOPHEN 325 MG TABLET PO PRN (09:14)
[2022-10-18] MEDS: VANCOMYCIN 1,000 MG in 0.9 % SODIUM CHLORIDE 250 ML IV SCH ×2 (10:02→20:14)
--- NOTE | 2022-10-18 10:42 | Internal Med Progress Note ---
SUBJECTIVE Subjective Patient information: Note initiated : 10/18/22 at 10:38 am Service Date, if different from initiated Date: [] Patient: Sandip Montana 67 y/o M admitted on 10/15/22 for Weakness. Chief Complaint: [] Interval history: Mr. Montana is a 67 year old M male with a historyof severe alcohol use disorder, cognitive impairment, hypothyroidism, BPH, degenerative disc disease who is visiting family and was brought to the ED by family due to concerns of generalized weakness and inability to manage his activities of daily living as well as lower extremity edema. The patient was found to have cellulitis of his right foot in the ED as well as hypokalemia and hypomagnesemia. Per report, the patient consumes a significant amount of alcohol daily most the time but has not consumed alcohol for several days. He is apparently homebound and requires a caregiver at baseline. The patient lives in [place] and came to spent the holiday weekend with family. Hospital medicine was asked to admit the patient for cellulitis, electrolyte replacement and supportive cares. The patient is unable to provide any history as he received Ativan in the ED and was asleep when I examined him. The ED provider did discuss CODE STATUS with his family members and the patient is full code. 10/16 Overnight the patient went into atrial fibrillation with rapid ventricular response, started a amiodarone bolus followed by infusion and the patient converted back to sinus rhythm. This morning started Lopressor 25 mg twice daily and discontinued the amiodarone infusion. The patient is alert and oriented today. Cellulitis improving since admission. Replaced magnesium, potassium normal today. Radiology reports of the foot x-ray was not suggestive of osteomyelitis, no fractures noted. CTA chest did not show any pulmonary emboli, there was interstitial lung disease in the lateral basal segment of the left lower lobe which could be inflammation or fibrosis. Liver ultrasound revealed echogenic sludge in the gallbladder, no evidence of cholecystitis or dilation of the bile ducts, fatty infiltration of the liver without evidence of cirrhosis. Vitamin B12 level was about 800. Improving bilirubin. Urine culture growing Enterococcus faecium, started vancomycin IV per pharmacy. Also on ceftriaxone. Roper catheter removed. 10/17 The patient continues to have fevers overnight. Today he is having diarrhea, check C. difficile screen and that was negative. SARS-CoV-2, influenza A, influenza B, RSV PCR negative. Blood cultures showing no growth to date. Cellulitis of the right foot is improving, query possibility of gout in that foot as well. Added Toradol IV as needed. CT abdomen pelvis with contrast today was suspicious for cholecystitis. Added metronidazole IV. General surgery consulted, recommended continuing IV antibiotics and obtaining an MRCP. Heart rate increased later in the evening, repeat EKG showed A. fib with RVR. Transthoracic echocardiogram results available and showed an LVEF of 35 to 40%, normal right ventricular size and function, mild to moderate mitral regurgitation, mild to moderate tricuspid regurgitation. Switch beta-blockers to Toprol 50 mg at bedtime. Added digoxin IV load, monitoring for effect. If no effect then will likely start amiodarone. Blood pressure on the low side so holding off on RAAS inhibition at this time. Obtain ultrasound of right MTP joint to evaluate for effusion. Discussed anticoagulation for atrial fibrillation with the patient and family at the bedside, they will think about it before making a decision. 1/3 Afebrile overnight, vitals improved including improvement in heart rate after starting digoxin IV load. MRCP today per general surgery recommendations. Ultrasound of right MTP showed a possible fluid collection, radiology will perform an aspiration and send fluid for studies. Transition from IV to oral digoxin. Continues on broad-spectrum antibiotics for now. Physical exam Head: Atraumatic, normal inspection. Eyes: normal appearance, no scleral icterus. Neck: full ROM Respiratory: No respiratory distress Cardiovascular: Regular rhythm, S1, S2. GI/Abdominal: soft, nontender, no guarding. Extremities: right foot edema, warmth and tenderness. Neurological: CN II-XII intact, intact motor, intact sensation. Psychiatric: Normal mood Skin: Improving cellulitis of the right foot. Constitutional Vitals: Vital Signs Temp Pulse Resp BP Pulse Ox O2 Del Method O2 Flow Rate 97.1 F 76 20 123/98 98 2 10/18/22 08:01 10/18/22 06:01 10/18/22 08:01 10/18/22 08:01 10/18/22 08:01 10/18/22 08:01 10/16/22 02:00 Period Temp Pulse Resp BP Sys/Garcia Pulse Ox O2 Del Method O2 Flow Rate Last 24 Hr 97.1 F-100.8 F 50-147 19-29 96-135/68-98 94-98 Room Air-Room Air Intake and Output 10/17/22 10/18/22 10/18/22 19:59 03:59 11:59 Intake Total 2868.0909 403 843 Output Total 151 325 250 Balance 2717.0909 78 593 Weight 85.003 kg Intake & Output: Intake & Output 10/17/22 10/18/22 10/18/22 19:59 03:59 11:59 Intake Total 2868.0909 403 843 Output Total 151 325 250 Balance 2717.0909 78 593 Weight 85.003 kg Intake: Nourishment/Supplement quantity 200 (ml) IV 1288.0909 403 203 Sodium Chloride 0.9% 1,000 ml @ 576 75 mls/hr IV .[id number] [facility] Rx#: [id number] Potassium Phosphate 40 Meq In 509.0909 Dextrose 5% in Water 500 ml @ 127.273 mls/hr IV ONCE ONE Rx#: [id number] Vitamin B1 300 mg In Sodium 53 53 53 Chloride 0.9% 50 ml @ 50 mls/hr IV Q8H [facility] Rx#:[id number] Vancomycin 1,000 mg In Sodium 250 Chloride 0.9% 250 ml @ 250 mls/ hr IV Q12H [facility] Rx#:[id number] Rocephin 2 gm In Dextrose 5% in 50 Water 50 ml @ 100 mls/hr IV Q24H [facility] Rx#:[id number] Oral 1380 640 Output: Void Amount 150 125 150 # of times incontinent of urine 1 Urine/Stool Mix 100 Stool 200 Other: Meal Dinner Breakfast Percent of Meal Consumed Bites 75% Feeding Ability Assist with Tray Set Up Independent Nourishment/Supplement name Ensure Urine Appearance Clear Clear Urine Color Red Brown Brown Dark Tesha Stool Size Small Large Stool Color Green Brown Brown Green Stool Consistency Liquid Liquid Liquid Watery # Bowel Movements 1 3 # of times incontinent of 1 2 1 Bowels OBJ DATA Labs CBC & Chem 7: 10/18/22 05:34 10/18/22 05:24 Labs: Abnormal Lab Results 10/18/22 10/18/22 10/17/22 05:34 05:24 06:58 RBC 2.45 L Hgb 9.2 L Hct 28.1 L POC Hct MCV 114.7 H MCH 37.6 H MCHC RDW 16.3 H Plt Count 91 L MPV Immature Gran % (Auto) [place] % (Auto) 14.6 H Lymph # (Auto) 0.99 L [place] # (Auto) Immature Gran # POC PT D-Dimer POC VBG pH POC VBG pCO2 at Temp POC Venous O2 Sat Sodium 131 L POC Potassium Carbon Dioxide 19 L 19 L Anion Gap 6.0 L BUN 6 L 7 L Creatinine 0.6 L 0.6 L Glucose Calcium 7.2 L 7.0 L POC WB Ioniz Calcium Phosphorus 1.9 L 1.5 L Magnesium Total Bilirubin 2.2 H 2.9 H Direct Bilirubin 1.3 H 1.8 H GGT 309 H 333 H AST 53 H 58 H Lactate Dehydrogenase C-Reactive Protein NT-Pro-B Natriuret Pep Total Protein 5.1 L 5.4 L Albumin 2.4 L 2.6 L Albumin/Globulin Ratio 0.9 L 0.9 L TSH Urine Appearance Urine Nitrate Urine Urobilinogen Urine Bacteria 10/17/22 10/16/22 10/16/22 05:50 14:33 05:49 RBC 2.74 L Hgb 10.1 L Hct 32.8 L POC Hct MCV 119.7 H MCH 36.9 H MCHC 30.8 L RDW 16.5 H Plt Count 105 L MPV Immature Gran % (Auto) [place] % (Auto) Lymph # (Auto) 1.12 L [place] # (Auto) Immature Gran # POC PT D-Dimer POC VBG pH POC VBG pCO2 at Temp POC Venous O2 Sat Sodium 132 L POC Potassium Carbon Dioxide Anion Gap BUN 7 L Creatinine Glucose 113 H Calcium 6.8 L POC WB Ioniz Calcium Phosphorus 2.2 L Magnesium 1.5 L Total Bilirubin 5.0 H Direct Bilirubin 3.6 H GGT 317 H AST 59 H Lactate Dehydrogenase 228 H C-Reactive Protein NT-Pro-B Natriuret Pep Total Protein 5.6 L Albumin 2.5 L Albumin/Globulin Ratio 0.8 L TSH Urine Appearance Cloudy A Urine Nitrate Pos A Urine Urobilinogen 4.0 A Urine Bacteria Many A 10/16/22 10/15/22 10/15/22 05:48 18:30 18:30 RBC 2.68 L Hgb 9.8 L Hct 29.5 L POC Hct MCV 110.1 H MCH 36.6 H MCHC RDW 15.9 H Plt Count 88 L MPV 12.7 H Immature Gran % (Auto) 0.6 H [place] % (Auto) Lymph # (Auto) 1.00 L [place] # (Auto) Immature Gran # POC PT D-Dimer 4.28 H POC VBG pH POC VBG pCO2 at Temp POC Venous O2 Sat Sodium POC Potassium Carbon Dioxide Anion Gap BUN Creatinine Glucose Calcium POC WB Ioniz Calcium Phosphorus Magnesium Total Bilirubin Direct Bilirubin GGT AST Lactate Dehydrogenase C-Reactive Protein 10.50 H NT-Pro-B Natriuret Pep Total Protein Albumin Albumin/Globulin Ratio TSH Urine Appearance Urine Nitrate Urine Urobilinogen Urine Bacteria 10/15/22 10/15/22 10/15/22 18:25 17:52 17:48 RBC Hgb Hct POC Hct 31.0 L MCV MCH MCHC RDW Plt Count MPV Immature Gran % (Auto) [place] % (Auto) Lymph # (Auto) [place] # (Auto) Immature Gran # POC PT 14.8 H D-Dimer POC VBG pH 7.50 H POC VBG pCO2 at Temp 32.2 L POC Venous O2 Sat 75.0 H Sodium POC Potassium 2.6 L* Carbon Dioxide Anion Gap BUN Creatinine Glucose Calcium POC WB Ioniz Calcium 0.91 L Phosphorus Magnesium Total Bilirubin Direct Bilirubin GGT AST Lactate Dehydrogenase C-Reactive Protein NT-Pro-B Natriuret Pep Total Protein Albumin Albumin/Globulin Ratio TSH Urine Appearance Urine Nitrate Urine Urobilinogen Urine Bacteria 10/15/22 10/15/22 16:10 16:10 RBC 2.90 L Hgb 10.9 L Hct 31.3 L POC Hct MCV 107.9 H MCH 37.6 H MCHC RDW 15.6 H Plt Count 77 L MPV 12.7 H Immature Gran % (Auto) 1.2 H [place] % (Auto) 12.6 H Lymph # (Auto) 1.20 L [place] # (Auto) 0.95 H Immature Gran # 0.09 H POC PT D-Dimer POC VBG pH POC VBG pCO2 at Temp POC Venous O2 Sat Sodium POC Potassium Carbon Dioxide Anion Gap BUN Creatinine Glucose Calcium POC WB Ioniz Calcium Phosphorus Magnesium 0.8 L* Total Bilirubin 6.1 H Direct Bilirubin 3.9 H GGT AST 69 H Lactate Dehydrogenase C-Reactive Protein NT-Pro-B Natriuret Pep 3197.0 H Total Protein Albumin 3.1 L Albumin/Globulin Ratio TSH 16.94 H Urine Appearance Urine Nitrate Urine Urobilinogen Urine Bacteria Meds: Medications Acetaminophen (Acetaminophen 325 Mg Tablet) 650 mg PO Q6HP PRN; Protocol PRN Reason: Per Pain Protocol/Fever > 101 Last Admin: 10/18/22 09:14 Dose: 650 mg Albuterol Sulfate (Albuterol Sulfate 2.5 Mg/3 Ml Nebulizer) 2.5 mg NEB Q2HP PRN PRN Reason: dyspnea Cyanocobalamin (Cyanocobalamin (Vitamin B-12) 500 Mcg Tablet) 500 mcg PO DAILY [facility] Last Admin: 10/18/22 09:13 Dose: 500 mcg Digoxin (Digoxin 125 Mcg Tablet) 125 mcg PO DAILY@1400 SINGH Enoxaparin Sodium (Enoxaparin 40 Mg/0.4 Ml Syringe) 40 mg SQ DAILY [facility] Last Admin: 10/18/22 09:13 Dose: 40 mg Folic Acid (Folic Acid 1 Mg Tablet) 1 mg PO DAILY [facility] Last Admin: 10/18/22 09:13 Dose: 1 mg Haloperidol Lactate (Haloperidol Lactate 5 Mg/Ml Vial) 2 mg IV Q4HP PRN PRN Reason: ANXIETY/SEDATION Thiamine HCl 300 mg/ Sodium (Chloride) 53 mls @ 50 mls/hr IV Q8H [facility] Stop: 10/20/22 21:59 Last Infusion: 10/18/22 06:15 Dose: Infused Vancomycin HCl 1,000 mg/ (Sodium Chloride) 250 mls @ 250 mls/hr IV Q12H [facility] Last Admin: 10/18/22 10:02 Dose: 250 mls/hr Ceftriaxone Sodium 2 gm/ (Dextrose) 50 mls @ 100 mls/hr IV Q24H [facility]; Protocol Last Infusion: 10/18/22 10:03 Dose: Infused Metronidazole (Flagyl) 500 mg in 100 mls @ 100 mls/hr IV Q8H [facility]; Protocol Last Infusion: 10/18/22 06:23 Dose: Infused Lactulose (Lactulose 20 Gm/30 Ml Oral.Hanh) 10 gm PO DAILYP PRN PRN Reason: Constipation Levothyroxine Sodium (Levothyroxine 125 Mcg Tablet) 125 mcg PO QAMAC [facility] Last Admin: 10/18/22 09:13 Dose: 125 mcg Loperamide HCl (Loperamide 2 Mg Capsule) 2 mg PO Q4HP PRN PRN Reason: Diarrhea Last Admin: 10/18/22 09:13 Dose: 2 mg Lorazepam (Lorazepam 2 Mg/Ml Vial) 0 mg IV UD PRN; Protocol PRN Reason: Alcohol Withdrawal/Assess CIWA Metoprolol Succinate (Metoprolol Succinate 50 Mg Tab.Xl.24h) 50 mg PO [facility] Last Admin: 10/17/22 20:23 Dose: 50 mg Metoprolol Tartrate (Metoprolol Tartrate 5 Mg/5 Ml Vial) 5 mg IV Q4HP PRN PRN Reason: Tachyarrhythmias Ondansetron HCl (Ondansetron 4 Mg/2 Ml Vial) 4 mg IV Q4HP PRN; Protocol PRN Reason: Nausea And Vomiting Pneumococcal Polyvalent Vaccine (Pneumococcal 23-Magali P-Sac Vac 0.5 Ml Syringe) 0.5 ml IM .ONCE ONE Stop: 10/20/22 10:01 Potassium Chloride (Potassium Chloride 20 Meq Tablet) 40 meq PO [facility] Stop: 10/20/22 07:59 Last Admin: 10/18/22 09:13 Dose: 40 meq Senna (Sennosides 1 Tablet) 2 tab PO [facility] PRN PRN Reason: Constipation Sodium Chloride (0.9 % Sodium Chloride 10 Ml Syringe) 10 ml IV Q8 [facility] Last Admin: 10/18/22 05:06 Dose: 10 ml Sodium Chloride (0.9 % Sodium Chloride 10 Ml Syringe) 10 ml IV Q8 [facility] Last Admin: 10/18/22 04:58 Dose: Not Given Vancomycin HCl (Vancomycin Per Pharmacy) 1 order IV [facility]; Protocol A/P Narrative A/P Narrative: Assessment: 67-year-old male with a history of severe alcohol use disorder complicated by cognitive impairment, hypothyroidism, BPH, degenerative disc disease was brought to the emergency department by concerned family members due to generalized weakness, inability to manage ADLs and lower extremity edema. In the emergency department, the patient was found to have cellulitis of his right foot, severe hypokalemia and severe hypomagnesemia. Chest x-ray did not show any infiltrates. Lactic acid was normal. After admission, the patient was found to have atrial fibrillation with rapid ventricular response as well as heart failure with reduced ejection fraction 35 to 40%. Urine culture grew Enterococcus. In spite of broad-spectrum antibiotics, the patient continued to have fevers. PCR testing for SARS-CoV-2, influenza A, influenza B, RSV was negative. A CT abdomen and pelvis was obtained and showed possible cholecystitis. General surgery was consulted and recommended an MRCP. #Nonpurulent cellulitis of right foot #Possible gout of right MTP joint #UTI secondary to Enterococcus #Possible cholecystitis #Atrial fibrillation #Heart failure with reduced ejection fraction #Hypophosphatemia #Macrocytic anemia likely secondary to alcohol use #Thrombocytopenia likely secondary to alcohol use #Hypothyroidism, poorly controlled likely secondary to noncompliance #Reported history of chronic hepatitis C #Probable malnourishment #Diarrhea, negative C. difficile screen #Generalized weakness #Probable dementia #Questionable capacity #Severe alcohol use disorder Plan -Vancomycin IV per pharmacy, ceftriaxone and metronidazole IV for now. -MRCP today. -Right MTP aspiration by radiology, labs ordered. -Follow blood cultures x2. -Demarcate and monitor right foot cellulitis. -Replace electrolytes as needed. -CIWA protocol with Ativan IV as needed. -Vitamin supplementation including high-dose IV thiamine. -Rate control: Toprol 50 mg at bedtime, start oral digoxin 125 mcg daily and discontinue IV digoxin. -Start lisinopril 2.5 mg daily for HFrEF, titrate as tolerated. -Discussed oral anticoagulation for atrial fibrillation, patient and family will discuss amongst themselves. -Analgesics as needed. -Imodium as needed for diarrhea. -patient monitor. -Regular diet. -PT and OT consult. -Continue Levothyroxine 125 mcg daily, unclear what the patient's prior levothyroxine dose was. -Consider telepsychiatry consult for capacity evaluation. -DVT prophylaxis: Lovenox as long as platelets greater than 50,000. -CODE STATUS: Full -Disposition: Low intensity heat rehab versus home with 24/7 family supervision. Recommend cardiology referral at discharge, repeat echocardiogram in 3 months. Time Spent With Patient Time: Total time spent is greater than 50% in coordination of care (as documented) at patient's floor/unit and/or counseling patient:
[2022-10-18] MEDS: LISINOPRIL 2.5 MG TABLET PO SCH (11:35)
[2022-10-18] MEDS: DIGOXIN 125 MCG TABLET PO SCH (13:45)
[2022-10-18 15:14] LABS: Appearance, Body Fluid cloudy viscous; Color, Body Fluid Pink
[2022-10-18] MEDS ORDERED: METOPROLOL TARTRATE 5 MG/5 ML VIAL IV PRN (15:32)
--- NOTE | 2022-10-18 15:33 | Internal Med Progress Note ---
SUBJECTIVE Subjective Patient information: Note initiated : 10/18/22 at 3:20 pm Service Date, if different from initiated Date: [] Patient: Sandip Montana 67 y/o M admitted on 10/15/22 for Weakness. Chief Complaint: [] Interval history: Mr. Montana is a 67 year old M male with a historyof severe alcohol use disorder, cognitive impairment, hypothyroidism, BPH, degenerative disc disease who is visiting family and was brought to the ED by family due to concerns of generalized weakness and inability to manage his activities of daily living as well as lower extremity edema. The patient was found to have cellulitis of his right foot in the ED as well as hypokalemia and hypomagnesemia. Per report, the patient consumes a significant amount of alcohol daily most the time but has not consumed alcohol for several days. He is apparently homebound and requires a caregiver at baseline. The patient lives in [place] and came to spent the holiday weekend with family. Hospital medicine was asked to admit the patient for cellulitis, electrolyte replacement and supportive cares. The patient is unable to provide any history as he received Ativan in the ED and was asleep when I examined him. The ED provider did discuss CODE STATUS with his family nancie logan and the patient is full code. 10/16 Overnight the patient went into atrial fibrillation with rapid ventricular response, started a amiodarone bolus followed by infusion and the patient converted back to sinus rhythm. This morning started Lopressor 25 mg twice daily and discontinued the amiodarone infusion. The patient is alert and oriented today. Cellulitis improving since admission. Replaced magnesium, potassium normal today. Radiology reports of the foot x-ray was not suggestive of osteomyelitis, no fractures noted. CTA chest did not show any pulmonary emboli, there was interstitial lung disease in the lateral basal segment of the left lower lobe which could be inflammation or fibrosis. Liver ultrasound revealed echogenic sludge in the gallbladder, no evidence of cholecystitis or dilation of the bile ducts, fatty infiltration of the liver without evidence of cirrhosis. Vitamin B12 level was about 800. Improving bilirubin. Urine culture growing Enterococcus faecium, started vancomycin IV per pharmacy. Also on ceftriaxone. Roper catheter removed. 10/17 The patient continues to have fevers overnight. Today he is having diarrhea, check C. difficile screen and that was negative. SARS-CoV-2, influenza A, influenza B, RSV PCR negative. Blood cultures showing no growth to date. Cellulitis of the right foot is improving, query possibility of gout in that foot as well. Added Toradol IV as needed. CT abdomen pelvis with contrast today was suspicious for cholecystitis. Added metronidazole IV. General surgery consulted, recommended continuing IV antibiotics and obtaining an MRCP. Heart rate increased later in the evening, repeat EKG showed A. fib with RVR. T ransthoracic echocardiogram results available and showed an LVEF of 35 to 40%, normal right ventricular size and function, mild to moderate mitral regurgitation, mild to moderate tricuspid regurgitation. Switch beta-blockers to Toprol 50 mg at bedtime. Added digoxin IV load, monitoring for effect. If no effect then will likely start amiodarone. Blood pressure on the low side so holding off on RAAS inhibition at this time. Obtain ultrasound of right MTP joint to evaluate for effusion. Discussed anticoagulation for atrial fibrillation with the patient and family at the bedside, they will think about it before making a decision. 10/18 Afebrile overnight, vitals improved including improvement in heart rate after starting digoxin IV load. MRCP today per general surgery recommendations. U ltrasound of right MTP showed a possible fluid collection, radiology will perform an aspiration and send fluid for studies. Transition from IV to oral digoxin. Continues on broad-spectrum antibiotics for now. 10/19 Constitutional Vitals: Vital Signs Temp Pulse Resp BP Pulse Ox O2 Del Method O2 Flow Rate 97.1 F 106 H 19 94/62 97 2 10/18/22 12:00 10/18/22 14:00 10/18/22 14:00 10/18/22 14:00 10/18/22 14:00 10/18/22 14:00 10/16/22 02:00 Period Temp Pulse Resp BP Sys/Garcia Pulse Ox O2 Del Method O2 Flow Rate Last 24 Hr 97.1 F-100.8 F 50-147 19-29 94-123/62-98 94-98 Room Air-Room Air Intake and Output 10/18/22 10/18/22 10/18/22 03:59 11:59 19:59 Intake Total 403 1097.5455 490 Output Total 325 250 280 Balance 78 847.5455 210 Intake & Output: Intake & Output 10/18/22 10/18/22 10/18/22 03:59 11:59 19:59 Intake Total 403 1097.5455 490 Output Total 325 250 280 Balance 78 847.5455 210 Intake: IV 605 105.3609 250 Potassium Phosphate 20 Meq In 254.5455 Dextrose 5% in Water 250 ml @ 127.273 mls/hr IV ONCE ONE Rx#: [id number] Vitamin B1 300 mg In Sodium 53 53 Chloride 0.9% 50 ml @ 50 mls/hr IV Q8H [facility] Rx#:[id number] Vancomycin 1,000 mg In Sodium 250 250 Chloride 0.9% 250 ml @ 250 mls/ hr IV Q12H [facility] Rx#:[id number] Rocephin 2 gm In Dextrose 5% in 50 Water 50 ml @ 100 mls/hr IV Q24H [facility] Rx#:[id number] Oral 640 240 Output: Void Amount 125 150 280 Urine/Stool Mix 100 Stool 200 Other: Meal Breakfast Lunch Percent of Meal Consumed 75% 75% Feeding Ability Independent Urine Appearance Clear Urine Color Brown Dark Tesha Tea Colored Stool Size Large Stool Color Brown Brown Green Stool Consistency Liquid Liquid Watery # Bowel Movements 3 # of times incontinent of 2 1 Bowels Exam: General: Alert, Awake, No acute Distress Eyes/N/T: EOMI, Head/Neck: neck supple, CV: RRR, No murmurs, Pulm: Clear b/l, no wheezing/rhonchi/rales Abd: soft, nontender, +BS x4 Ext: no clubbing/cyanosis, right foot edema, warmth and tenderness. Neuro: Alert, no focal deficits, moves all extremities, Skin: warm/dry OBJ DATA Labs CBC & Chem 7: 10/18/22 05:34 10/18/22 05:24 Labs: Abnormal Lab Results 10/18/22 10/18/22 10/18/22 11:00 05:34 05:24 RBC 2.45 L Hgb 9.2 L Hct 28.1 L POC Hct MCV 114.7 H MCH 37.6 H MCHC RDW 16.3 H Plt Count 91 L MPV Immature Gran % (Auto) [place] % (Auto) 14.6 H Lymph # (Auto) 0.99 L [place] # (Auto) Immature Gran # POC PT D-Dimer POC VBG pH POC VBG pCO2 at Temp POC Venous O2 Sat Sodium 131 L POC Potassium Carbon Dioxide 19 L Anion Gap 6.0 L BUN 6 L Creatinine 0.6 L Glucose Calcium 7.2 L POC WB Ioniz Calcium Phosphorus 1.9 L Magnesium Total Bilirubin 2.2 H Direct Bilirubin 1.3 H GGT 309 H AST 53 H Lactate Dehydrogenase C-Reactive Protein NT-Pro-B Natriuret Pep Total Protein 5.1 L Albumin 2.4 L Albumin/Globulin Ratio 0.9 L TSH Urine Appearance Urine Nitrate Urine Urobilinogen Urine Bacteria Fluid Crystals Monosodium urate A 10/17/22 10/17/22 10/16/22 06:58 05:50 14:33 RBC 2.74 L Hgb 10.1 L Hct 32.8 L POC Hct MCV 119.7 H MCH 36.9 H MCHC 30.8 L RDW 16.5 H Plt Count 105 L MPV Immature Gran % (Auto) [place] % (Auto) Lymph # (Auto) 1.12 L [place] # (Auto) Immature Gran # POC PT D-Dimer POC VBG pH POC VBG pCO2 at Temp POC Venous O2 Sat Sodium POC Potassium Carbon Dioxide 19 L Anion Gap BUN 7 L Creatinine 0.6 L Glucose Calcium 7.0 L POC WB Ioniz Calcium Phosphorus 1.5 L Magnesium Total Bilirubin 2.9 H Direct Bilirubin 1.8 H GGT 333 H AST 58 H Lactate Dehydrogenase C-Reactive Protein NT-Pro-B Natriuret Pep Total Protein 5.4 L Albumin 2.6 L Albumin/Globulin Ratio 0.9 L TSH Urine Appearance Cloudy A Urine Nitrate Pos A Urine Urobilinogen 4.0 A Urine Bacteria Many A Fluid Crystals 10/16/22 10/16/22 10/15/22 05:49 05:48 18:30 RBC 2.68 L Hgb 9.8 L Hct 29.5 L POC Hct MCV 110.1 H MCH 36.6 H MCHC RDW 15.9 H Plt Count 88 L MPV 12.7 H Immature Gran % (Auto) 0.6 H [place] % (Auto) Lymph # (Auto) 1.00 L [place] # (Auto) Immature Gran # POC PT D-Dimer POC VBG pH POC VBG pCO2 at Temp POC Venous O2 Sat Sodium 132 L POC Potassium Carbon Dioxide Anion Gap BUN 7 L Creatinine Glucose 113 H Calcium 6.8 L POC WB Ioniz Calcium Phosphorus 2.2 L Magnesium 1.5 L Total Bilirubin 5.0 H Direct Bilirubin 3.6 H GGT 317 H AST 59 H Lactate Dehydrogenase 228 H C-Reactive Protein 10.50 H NT-Pro-B Natriuret Pep Total Protein 5.6 L Albumin 2.5 L Albumin/Globulin Ratio 0.8 L TSH Urine Appearance Urine Nitrate Urine Urobilinogen Urine Bacteria Fluid Crystals 10/15/22 10/15/22 10/15/22 18:30 18:25 17:52 RBC Hgb Hct POC Hct 31.0 L MCV MCH MCHC RDW Plt Count MPV Immature Gran % (Auto) [place] % (Auto) Lymph # (Auto) [place] # (Auto) Immature Gran # POC PT 14.8 H D-Dimer 4.28 H POC VBG pH POC VBG pCO2 at Temp POC Venous O2 Sat Sodium POC Potassium 2.6 L* Carbon Dioxide Anion Gap BUN Creatinine Glucose Calcium POC WB Ioniz Calcium 0.91 L Phosphorus Magnesium Total Bilirubin Direct Bilirubin GGT AST Lactate Dehydrogenase C-Reactive Protein NT-Pro-B Natriuret Pep Total Protein Albumin Albumin/Globulin Ratio TSH Urine Appearance Urine Nitrate Urine Urobilinogen Urine Bacteria Fluid Crystals 10/15/22 10/15/22 10/15/22 17:48 16:10 16:10 RBC 2.90 L Hgb 10.9 L Hct 31.3 L POC Hct MCV 107.9 H MCH 37.6 H MCHC RDW 15.6 H Plt Count 77 L MPV 12.7 H Immature Gran % (Auto) 1.2 H [place] % (Auto) 12.6 H Lymph # (Auto) 1.20 L [place] # (Auto) 0.95 H Immature Gran # 0.09 H POC PT D-Dimer POC VBG pH 7.50 H POC VBG pCO2 at Temp 32.2 L POC Venous O2 Sat 75.0 H Sodium POC Potassium Carbon Dioxide Anion Gap BUN Creatinine Glucose Calcium POC WB Ioniz Calcium Phosphorus Magnesium 0.8 L* Total Bilirubin 6.1 H Direct Bilirubin 3.9 H GGT AST 69 H Lactate Dehydrogenase C-Reactive Protein NT-Pro-B Natriuret Pep 3197.0 H Total Protein Albumin 3.1 L Albumin/Globulin Ratio TSH 16.94 H Urine Appearance Urine Nitrate Urine Urobilinogen Urine Bacteria Fluid Crystals Meds: Medications Acetaminophen (Acetaminophen 325 Mg Tablet) 650 mg PO Q6HP PRN; Protocol PRN Reason: Per Pain Protocol/Fever > 101 Last Admin: 10/18/22 09:14 Dose: 650 mg Albuterol Sulfate (Albuterol Sulfate 2.5 Mg/3 Ml Nebulizer) 2.5 mg NEB Q2HP PRN PRN Reason: dyspnea Cyanocobalamin (Cyanocobalamin (Vitamin B-12) 500 Mcg Tablet) 500 mcg PO DAILY [facility] Last Admin: 10/18/22 09:13 Dose: 500 mcg Digoxin (Digoxin 125 Mcg Tablet) 125 mcg PO DAILY@1400 [facility] Last Admin: 10/18/22 13:45 Dose: 125 mcg Enoxaparin Sodium (Enoxaparin 40 Mg/0.4 Ml Syringe) 40 mg SQ DAILY [facility] Last Admin: 10/18/22 09:13 Dose: 40 mg Folic Acid (Folic Acid 1 Mg Tablet) 1 mg PO DAILY [facility] Last Admin: 10/18/22 09:13 Dose: 1 mg Haloperidol Lactate (Haloperidol Lactate 5 Mg/Ml Vial) 2 mg IV Q4HP PRN PRN Reason: ANXIETY/SEDATION Thiamine HCl 300 mg/ Sodium (Chloride) 53 mls @ 50 mls/hr IV Q8H [facility] Stop: 10/20/22 21:59 Last Admin: 10/18/22 14:19 Dose: 50 mls/hr Vancomycin HCl 1,000 mg/ (Sodium Chloride) 250 mls @ 250 mls/hr IV Q12H [facility] Last Infusion: 10/18/22 12:42 Dose: Infused Ceftriaxone Sodium 2 gm/ (Dextrose) 50 mls @ 100 mls/hr IV Q24H [facility]; Protocol Last Infusion: 10/18/22 10:03 Dose: Infused Metronidazole (Flagyl) 500 mg in 100 mls @ 100 mls/hr IV Q8H [facility]; Protocol Last Admin: 10/18/22 13:45 Dose: 100 mls/hr Lactulose (Lactulose 20 Gm/30 Ml Oral.Hanh) 10 gm PO DAILYP PRN PRN Reason: Constipation Levothyroxine Sodium (Levothyroxine 125 Mcg Tablet) 125 mcg PO QAMAC [facility] Last Admin: 10/18/22 09:13 Dose: 125 mcg Lisinopril (Lisinopril 2.5 Mg Tablet) 2.5 mg PO DAILY [facility] Last Admin: 10/18/22 11:35 Dose: 2.5 mg Loperamide HCl (Loperamide 2 Mg Capsule) 2 mg PO Q4HP PRN PRN Reason: Diarrhea Last Admin: 01/03/23 09:13 Dose: 2 mg Lorazepam (Lorazepam 2 Mg/Ml Vial) 0 mg IV UD PRN; Protocol PRN Reason: Alcohol Withdrawal/Assess CIWA Metoprolol Succinate (Metoprolol Succinate 50 Mg Tab.Xl.24h) 50 mg PO HS [facility] Last Admin: 10/17/22 20:23 Dose: 50 mg Metoprolol Tartrate (Metoprolol Tartrate 5 Mg/5 Ml Vial) 5 mg IV Q4HP PRN PRN Reason: Tachyarrhythmias Ondansetron HCl (Ondansetron 4 Mg/2 Ml Vial) 4 mg IV Q4HP PRN; Protocol PRN Reason: Nausea And Vomiting Pneumococcal Polyvalent Vaccine (Pneumococcal 23-Magali P-Sac Vac 0.5 Ml Syringe) 0.5 ml IM .ONCE ONE Stop: 10/20/22 10:01 Potassium Chloride (Potassium Chloride 20 Meq Tablet) 40 meq PO [facility] Stop: 10/20/22 07:59 Last Admin: 10/18/22 09:13 Dose: 40 meq Senna (Sennosides 1 Tablet) 2 tab PO [facility] PRN PRN Reason: Constipation Sodium Chloride (0.9 % Sodium Chloride 10 Ml Syringe) 10 ml IV Q8 [facility] Last Admin: 10/18/22 05:06 Dose: 10 ml Vancomycin HCl (Vancomycin Per Pharmacy) 1 order IV [facility] [place]; Protocol A/P Narrative A/P Narrative: A; #Nonpurulent cellulitis of right foot: #Possible gout of right MTP joint: #UTI (Enterococcus): #Possible cholecystitis: gen surg following >low suspicion #Atrial fibrillation (new): #acute on likely chronic systolic(35-40) CHF: #Hypophosphatemia: #Acute Gout: #Macrocytic anemia on likely chronic: likely 2/2 chronic alcohol use #Thrombocytopenia: likely 2/2 chronic alcohol use #Hypothyroidism: poorly controlled likely 2/2 noncompliance #Reported history of chronic hepatitis C: #Probable malnourishment: #Diarrhea, negative C. difficile screen #Generalized weakness/deconditioning: #Probable dementia/Questionable capacity: #Severe alcohol use disorder: Plan: -Vancomycin IV per pharmacy, ceftriaxone and metronidazole IV for now. -MRCP today. -Right MTP aspiration by radiology, labs ordered -prednisone 40mg daily followed by 7-10 day taper -Follow blood cultures x2 -Demarcate and monitor right foot cellulitis -Replace electrolytes as needed -CIWA protocol with Ativan IV as needed, Vitamin supplementation including high- dose IV thiamine -Rate control> Toprol 50mg qhs, start oral digoxin 125mcg qd and discontinue IV digoxin. -Started lisinopril 2.5mg daily, titrate as tolerated. -Discussed oral anticoagulation for atrial fibrillation, patient and family will discuss amongst themselves. -Analgesics as needed. Imodium as needed for diarrhea. -nursing officer. -PT/OT consult. -Continue Levothyroxine 125mcg daily, unclear what the patient's prior levothyroxine dose was. -Consider telepsychiatry consult for capacity evaluation. -Referral to cardiology and repeat echocardiogram in 3 months -ppx: Lovenox as long as platelets greater than 50,000. 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
--- NOTE | 2022-10-18 15:50 | General Surgery Progress Note ---
SUBJECTIVE Subjective Patient information: Note initiated : 10/18/22 at 140 pm Service Date, if different from initiated Date: [] Patient: Sandip Montana 67 y/o M admitted on 10/15/22 for Weakness. Chief Complaint: [] Continues to have no pain, tolerating a diet, MRCP was ordered with results pending Constitutional Vitals: Vital Signs Temp Pulse Resp BP Pulse Ox O2 Del Method O2 Flow Rate 97.1 F 106 H 19 94/62 97 2 10/18/22 12:00 10/18/22 14:00 10/18/22 14:00 10/18/22 14:00 10/18/22 14:00 10/18/22 14:00 10/16/22 02:00 Period Temp Pulse Resp BP Sys/Garcia Pulse Ox O2 Del Method O2 Flow Rate Last 24 Hr 97.1 F-100.8 F 50-147 19-29 94-123/62-98 94-98 Room Air-Room Air Intake and Output 10/18/22 10/18/22 10/18/22 03:59 11:59 19:59 Intake Total 403 1097.5455 1043 Output Total 325 250 280 Balance 78 847.5455 763 Intake & Output: Intake & Output 10/18/22 10/18/22 10/18/22 03:59 11:59 19:59 Intake Total 403 1097.5455 1043 Output Total 325 250 280 Balance 78 847.5455 763 Intake: IV 371 405.1522 403 Potassium Phosphate 20 Meq In 254.5455 Dextrose 5% in Water 250 ml @ 127.273 mls/hr IV ONCE ONE Rx#: [id number] Vitamin B1 300 mg In Sodium 53 53 53 Chloride 0.9% 50 ml @ 50 mls/hr IV Q8H [facility] Rx#:[id number] Vancomycin 1,000 mg In Sodium 250 250 Chloride 0.9% 250 ml @ 250 mls/ hr IV Q12H [facility] Rx#:[id number] Rocephin 2 gm In Dextrose 5% in 50 Water 50 ml @ 100 mls/hr IV Q24H [facility] Rx#:[id number] Oral 640 640 Output: Void Amount 125 150 280 Urine/Stool Mix 100 Stool 200 Other: Meal Breakfast Lunch Percent of Meal Consumed 75% 75% Feeding Ability Independent Urine Appearance Clear Urine Color Brown Dark Tesha Tea Colored Stool Size Large Stool Color Brown Brown Green Stool Consistency Liquid Liquid Watery # Unmeasured Emesis 1 # Bowel Movements 3 # of times incontinent of 2 1 Bowels Exam: Resting comfortably, NAD GI/Abdominal Additional comments: Remains non tender and without focal findings A/P Assessment and plan (1) Gallbladder anomaly: Status: Acute Plan Presumed Cirrhosis with mildly elevated LFTs Continues to deny any abdominal pain or tenderness with a normal RUQ US and CT showing some possible wall thickening in setting of apparent Cirrhosis MRCP results pending but suspect LFT elevation is related to underlying liver dysfunction No operative plans at this time given total absence of pain or tenderness and normal US Continue IV ABs for now Time Spent With Patient Time: Total time spent is greater than 50% in coordination of care (as documented) at patient's floor/unit and/or counseling patient:
[2022-10-18] MEDS: predniSONE 20 MG TABLET PO SCH (17:10)
[2022-10-18] MEDS: METOPROLOL SUCCINATE 50 MG TAB.XL.24H PO SCH (20:14)
--- NOTE | 2022-10-19 04:40 | Ultrasound Report ---
CLINICAL INFORMATION: Large fluid collection in the dorsal soft tissues overlying the first MTP of the right foot TECHNIQUE: Procedure and risks including possibility of worsening infection and hemorrhage were explained to the patient. He understood and wished to proceed. The large fluid collection in the dorsal soft tissues overlying the distal first metatarsal was first social work program coordinator localized. Skin overlying the fluid collection was marked, prepped and locally anesthetized 1% lidocaine using a 25-gauge needle. An 18-gauge [employer] needle was advanced under sonographic guidance into the fluid. Approximately 6 cc of thick purulent fluid was aspirated and sent for Gram stain, culture sensitivity and other requested laboratory studies. Patient tolerated procedure well. No apparent complication. IMPRESSION: Successful ultrasound-guided percutaneous aspiration of abscess in the dorsal soft tissues overlying the distal first metatarsal. 6 cc of frankly purulent fluid was sent for requested studies. No apparent complication. If this fluid communicates with the first MTP, it obviously would be associated with septic arthritis. Interpreted and Authenticated by: Alec Sanchez 10/19/22
[2022-10-19] MEDS: metroNIDAZOLE 500 MG/100 ML BAG IV SCH (04:59)
[2022-10-19] MEDS: THIAMINE 300 MG in 0.9 % SODIUM CHLORIDE 50 ML IV SCH (04:59)
[2022-10-19] MEDS: 0.9 % SODIUM CHLORIDE 10 ML SYRINGE IV SCH ×3 (04:59→21:06)
[2022-10-19 06:49] LABS: Basophils # (Auto) 0.01 K/mcL (0.00-0.30); Basophils % (Auto) 0.2 % (0.0-2.0); Eosinophils # (Auto) 0.01 K/mcL (0.00-0.70); Eosinophils % (Auto) 0.2 % (0.0-7.0); Hematocrit 30.9 % (40.1-51.0); Lymphocytes # (Auto) 0.62 K/mcL (1.50-4.80); Lymphocytes % (Auto) 12.9 % (15.5-49.0); Mean Cell Volume 113.2 fL (80.0-100.0); Mean Corpuscular HGB Conc 32.4 g/dL (31.0-36.0); Mean Platelet Volume 12.1 fL (8.8-12.5); Monocytes # (Auto) 0.37 K/mcL (0.10-0.90); Monocytes % (Auto) 7.7 % (1.0-12.0); Neutrophils % (Auto) 78.4 % (38.0-78.0); Platelet Count 110 K/mcL (140-440); RBC 2.73 M/mcL (4.63-6.08); Red Cell Distribution Width 16.3 % (11.5-14.5); WBC 4.8 K/mcL (4.5-11.0)
[2022-10-19 07:15] LABS: ALT/SGPT 14 U/L (<40); AST/SGOT 49 U/L (<40); Albumin 2.3 gm/dL (3.2-5.2); Albumin/Globulin Ratio 0.7 (1.0-2.3); Alkaline Phosphatase 130 U/L (39-117); Bilirubin,Direct 0.9 mg/dL (<0.3); Bilirubin,Total 1.5 mg/dL (0.1-1.0); Blood Urea Nitrogen 8 mg/dL (8-23); Calcium 8.1 mg/dL (8.6-10.4); Carbon Dioxide 19 mmol/L (22-30); Chloride 106 mmol/L (96-108); Globulin 3.1 gm/dL (2.2-3.7); Glomerular Filtration Rate 113; Glucose 146 mg/dL (70-105); Lactate Dehydrogenase 238 U/L (135-225); Triglycerides 121 mg/dL (<150); Uric Acid 4.1 mg/dL (2.5-8.0)
[2022-10-19] MEDS: CYANOCOBALAMIN (VITAMIN B-12) 500 MCG TABLET PO SCH (08:04)
[2022-10-19] MEDS: POTASSIUM CHLORIDE 20 MEQ TABLET PO SCH (08:04)
[2022-10-19] MEDS: predniSONE 20 MG TABLET PO SCH (08:04)
[2022-10-19] MEDS: VANCOMYCIN 1,000 MG in 0.9 % SODIUM CHLORIDE 250 ML IV SCH (08:04)
[2022-10-19] MEDS: LEVOTHYROXINE 125 MCG TABLET PO SCH (08:04)
[2022-10-19] MEDS: ENOXAPARIN 40 MG/0.4 ML SYRINGE SQ SCH (08:04)
[2022-10-19] MEDS: FOLIC ACID 1 MG TABLET PO SCH (08:04)
[2022-10-19] MEDS: cefTRIAXone 2 GM in DEXTROSE 5% IN WATER 50 ML IV SCH (08:04)
--- NOTE | 2022-10-19 08:23 | Internal Med Progress Note ---
SUBJECTIVE Subjective Patient information: Note initiated : 10/19/22 at 8:15 am Service Date, if different from initiated Date: [] Patient: Sandip Montana 67 y/o M admitted on 10/15/22 for Weakness. Chief Complaint: [] Interval history: Mr. Montana is a 67 year old M male with a historyof severe alcohol use disorder, cognitive impairment, hypothyroidism, BPH, degenerative disc disease who is visiting family and was brought to the ED by family due to concerns of generalized weakness and inability to manage his activities of daily living as well as lower extremity edema. The patient was found to have cellulitis of his right foot in the ED as well as hypokalemia and hypomagnesemia. Per report, the patient consumes a significant amount of alcohol daily most the time but has not consumed alcohol for several days. He is apparently homebound and requires a caregiver at baseline. The patient lives in [place] and came to spent the holiday weekend with family. Hospital medicine was asked to admit the patient for cellulitis, electrolyte replacement and supportive cares. The patient is unable to provide any history as he received Ativan in the ED and was asleep when I examined him. The ED provider did discuss CODE STATUS with his family nancei logan and the patient is full code. 10/16 Overnight the patient went into atrial fibrillation with rapid ventricular response, started a amiodarone bolus followed by infusion and the patient converted back to sinus rhythm. This morning started Lopressor 25 mg twice daily and discontinued the amiodarone infusion. The patient is alert and oriented today. Cellulitis improving since admission. Replaced magnesium, potassium normal today. Radiology reports of the foot x-ray was not suggestive of osteomyelitis, no fractures noted. CTA chest did not show any pulmonary emboli, there was interstitial lung disease in the lateral basal segment of the left lower lobe which could be inflammation or fibrosis. Liver ultrasound revealed echogenic sludge in the gallbladder, no evidence of cholecystitis or dilation of the bile ducts, fatty infiltration of the liver without evidence of cirrhosis. Vitamin B12 level was about 800. Improving bilirubin. Urine culture growing Enterococcus faecium, started vancomycin IV per pharmacy. Also on ceftriaxone. Roper catheter removed. 10/17 The patient continues to have fevers overnight. Today he is having diarrhea, check C. difficile screen and that was negative. SARS-CoV-2, influenza A, influenza B, RSV PCR negative. Blood cultures showing no growth to date. Cellulitis of the right foot is improving, query possibility of gout in that foot as well. Added Toradol IV as needed. CT abdomen pelvis with contrast today was suspicious for cholecystitis. Added metronidazole IV. General surgery consulted, recommended continuing IV antibiotics and obtaining an MRCP. Heart rate increased later in the evening, repeat EKG showed A. fib with RVR. T ransthoracic echocardiogram results available and showed an LVEF of 35 to 40%, normal right ventricular size and function, mild to moderate mitral regurgitation, mild to moderate tricuspid regurgitation. Switch beta-blockers to Toprol 50 mg at bedtime. Added digoxin IV load, monitoring for effect. If no effect then will likely start amiodarone. Blood pressure on the low side so holding off on RAAS inhibition at this time. Obtain ultrasound of right MTP joint to evaluate for effusion. Discussed anticoagulation for atrial fibrillation with the patient and family at the bedside, they will think about it before making a decision. 1/3 Afebrile overnight, vitals improved including improvement in heart rate after starting digoxin IV load. MRCP today per general surgery recommendations. U ltrasound of right MTP showed a possible fluid collection, radiology will perform an aspiration and send fluid for studies. Transition from IV to oral digoxin. Continues on broad-spectrum antibiotics for now. 1/ MTP aspiration with monosodium urate crystals. Prednisone started. Patient afebrile overnight. Thrombocytopenia. Hyponatremia. Metabolic acidosis. Bilirubin improving. Review of Systems: denies headache/fever/chills/nausea/vomiting/chest or abdominal pain/cough/dyspnea/diarrhea. Otherwise see above. Constitutional Vitals: Vital Signs Temp Pulse Resp BP Pulse Ox O2 Del Method O2 Flow Rate 97.5 F 42 L 20 111/87 98 2 10/19/22 04:01 10/19/22 04:01 10/19/22 06:01 10/19/22 06:01 10/19/22 04:01 10/19/22 07:30 10/16/22 02:00 Period Temp Pulse Resp BP Sys/Garcia Pulse Ox O2 Del Method O2 Flow Rate Last 24 Hr 97.1 F-98.9 F 42-129 15-25 94-137/62-94 95-99 Room Air-Room Air Intake and Output 10/18/22 10/19/22 10/19/22 19:59 03:59 11:59 Intake Total 1163 403 153 Output Total 380 400 100 Balance 783 3 53 Weight 85.984 kg Intake & Output: Intake & Output 10/18/22 10/19/22 10/19/22 19:59 03:59 11:59 Intake Total 1163 403 153 Output Total 380 400 100 Balance 783 3 53 Weight 85.984 kg Intake: IV 403 403 153 Vitamin B1 300 mg In Sodium 53 53 53 Chloride 0.9% 50 ml @ 50 mls/hr IV Q8H [facility] Rx#:[id number] Vancomycin 1,000 mg In Sodium 250 250 Chloride 0.9% 250 ml @ 250 mls/ hr IV Q12H [facility] Rx#:[id number] Oral 760 Output: Void Amount 380 400 100 Other: Meal Dinner Percent of Meal Consumed 50% Urine Appearance Clear Clear Urine Color Red Brown Red Brown # Unmeasured Emesis 1 Exam: General: Alert, Awake, No acute Distress Eyes/N/T: EOMI, Head/Neck: neck supple, CV: RRR, No murmurs, Pulm: Clear b/l, no wheezing/rhonchi/rales Abd: soft, nontender, +BS x4 Ext: no clubbing/cyanosis, right foot edema, warmth and tenderness. Neuro: Alert, no focal deficits, moves all extremities, Skin: warm/dry OBJ DATA Labs CBC & Chem 7: 10/19/22 05:38 10/19/22 05:38 Labs: Abnormal Lab Results 10/19/22 10/19/22 10/18/22 05:38 05:38 11:00 RBC 2.73 L Hgb 10.0 L Hct 30.9 L MCV 113.2 H MCH 36.6 H MCHC RDW 16.3 H Plt Count 110 L Immature Gran % (Auto) 0.6 H Neut % (Auto) 78.4 H Lymph % (Auto) 12.9 L [place] % (Auto) Lymph # (Auto) 0.62 L Sodium 131 L Carbon Dioxide 19 L Anion Gap 6.0 L BUN Creatinine 0.5 L Glucose 146 H Calcium 8.1 L Phosphorus Total Bilirubin 1.5 H Direct Bilirubin 0.9 H GGT 363 H AST 49 H Alkaline Phosphatase 130 H Lactate Dehydrogenase 238 H Total Protein 5.4 L Albumin 2.3 L Albumin/Globulin Ratio 0.7 L Urine Appearance Urine Nitrate Urine Urobilinogen Urine Bacteria Fluid Crystals Monosodium urate A 10/18/22 10/18/22 10/17/22 05:34 05:24 06:58 RBC 2.45 L Hgb 9.2 L Hct 28.1 L MCV 114.7 H MCH 37.6 H MCHC RDW 16.3 H Plt Count 91 L Immature Gran % (Auto) Neut % (Auto) Lymph % (Auto) [place] % (Auto) 14.6 H Lymph # (Auto) 0.99 L Sodium 131 L Carbon Dioxide 19 L 19 L Anion Gap 6.0 L BUN 6 L 7 L Creatinine 0.6 L 0.6 L Glucose Calcium 7.2 L 7.0 L Phosphorus 1.9 L 1.5 L Total Bilirubin 2.2 H 2.9 H Direct Bilirubin 1.3 H 1.8 H GGT 309 H 333 H AST 53 H 58 H Alkaline Phosphatase Lactate Dehydrogenase Total Protein 5.1 L 5.4 L Albumin 2.4 L 2.6 L Albumin/Globulin Ratio 0.9 L 0.9 L Urine Appearance Urine Nitrate Urine Urobilinogen Urine Bacteria Fluid Crystals 10/17/22 10/16/22 05:50 14:33 RBC 2.74 L Hgb 10.1 L Hct 32.8 L MCV 119.7 H MCH 36.9 H MCHC 30.8 L RDW 16.5 H Plt Count 105 L Immature Gran % (Auto) Neut % (Auto) Lymph % (Auto) [place] % (Auto) Lymph # (Auto) 1.12 L Sodium Carbon Dioxide Anion Gap BUN Creatinine Glucose Calcium Phosphorus Total Bilirubin Direct Bilirubin GGT AST Alkaline Phosphatase Lactate Dehydrogenase Total Protein Albumin Albumin/Globulin Ratio Urine Appearance Cloudy A Urine Nitrate Pos A Urine Urobilinogen 4.0 A Urine Bacteria Many A Fluid Crystals Meds: Medications Acetaminophen (Acetaminophen 325 Mg Tablet) 650 mg PO Q6HP PRN; Protocol PRN Reason: Per Pain Protocol/Fever > 101 Last Admin: 10/18/22 09:14 Dose: 650 mg Albuterol Sulfate (Albuterol Sulfate 2.5 Mg/3 Ml Nebulizer) 2.5 mg NEB Q2HP PRN PRN Reason: dyspnea Cyanocobalamin (Cyanocobalamin (Vitamin B-12) 500 Mcg Tablet) 500 mcg PO DAILY [facility] Last Admin: 10/19/22 08:04 Dose: 500 mcg Digoxin (Digoxin 125 Mcg Tablet) 125 mcg PO DAILY@1400 [facility] Last Admin: 10/18/22 13:45 Dose: 125 mcg Enoxaparin Sodium (Enoxaparin 40 Mg/0.4 Ml Syringe) 40 mg SQ DAILY [facility] Last Admin: 10/19/22 08:04 Dose: 40 mg Folic Acid (Folic Acid 1 Mg Tablet) 1 mg PO DAILY [facility] Last Admin: 10/19/22 08:04 Dose: 1 mg Haloperidol Lactate (Haloperidol Lactate 5 Mg/Ml Vial) 2 mg IV Q4HP PRN PRN Reason: ANXIETY/SEDATION Thiamine HCl 300 mg/ Sodium (Chloride) 53 mls @ 50 mls/hr IV Q8H [facility] Stop: 10/20/22 21:59 Last Infusion: 10/19/22 06:15 Dose: Infused Vancomycin HCl 1,000 mg/ (Sodium Chloride) 250 mls @ 250 mls/hr IV Q12H [facility] Last Admin: 10/19/22 08:04 Dose: 250 mls/hr Ceftriaxone Sodium 2 gm/ (Dextrose) 50 mls @ 100 mls/hr IV Q24H [facility]; Protocol Last Admin: 10/19/22 08:04 Dose: 100 mls/hr Metronidazole (Flagyl) 500 mg in 100 mls @ 100 mls/hr IV Q8H [facility]; Protocol Last Infusion: 10/19/22 06:14 Dose: Infused Lactulose (Lactulose 20 Gm/30 Ml Oral.Hanh) 10 gm PO DAILYP PRN PRN Reason: Constipation Levothyroxine Sodium (Levothyroxine 125 Mcg Tablet) 125 mcg PO QAMAC [facility] Last Admin: 10/19/22 08:04 Dose: 125 mcg Lisinopril (Lisinopril 2.5 Mg Tablet) 2.5 mg PO DAILY [facility] Last Admin: 10/18/22 11:35 Dose: 2.5 mg Loperamide HCl (Loperamide 2 Mg Capsule) 2 mg PO Q4HP PRN PRN Reason: Diarrhea Last Admin: 10/18/22 09:13 Dose: 2 mg Lorazepam (Lorazepam 2 Mg/Ml Vial) 0 mg IV UD PRN; Protocol PRN Reason: Alcohol Withdrawal/Assess CIWA Metoprolol Succinate (Metoprolol Succinate 50 Mg Tab.Xl.24h) 50 mg PO HS [facility] Last Admin: 10/18/22 20:14 Dose: 50 mg Metoprolol Tartrate (Metoprolol Tartrate 5 Mg/5 Ml Vial) 5 mg IV Q2HP PRN PRN Reason: Tachyarrhythmias HR>110 Last Admin: 10/18/22 17:51 Dose: 5 mg Ondansetron HCl (Ondansetron 4 Mg/2 Ml Vial) 4 mg IV Q4HP PRN; Protocol PRN Reason: Nausea And Vomiting Pneumococcal Polyvalent Vaccine (Pneumococcal 23-Magali P-Sac Vac 0.5 Ml Syringe) 0.5 ml IM .ONCE ONE Stop: 10/20/22 10:01 Potassium Chloride (Potassium Chloride 20 Meq Tablet) 40 meq PO [facility] Stop: 10/20/22 07:59 Last Admin: 10/19/22 08:04 Dose: 40 meq Prednisone (Prednisone 20 Mg Tablet) 40 mg PO [facility] Last Admin: 10/19/22 08:04 Dose: 40 mg Senna (Sennosides 1 Tablet) 2 tab PO [facility] PRN PRN Reason: Constipation Sodium Chloride (0.9 % Sodium Chloride 10 Ml Syringe) 10 ml IV Q8 [facility] Last Admin: 10/19/22 04:59 Dose: 10 ml Vancomycin HCl (Vancomycin Per Pharmacy) 1 order IV UD [facility]; Protocol A/P Narrative A/P Narrative: A; #Nonpurulent cellulitis of right foot: #Acute Gout of right MTP joint: #UTI (Enterococcus), complicated: #Possible cholecystitis: gen surg following >low suspicion -MRCP with minimally distended/thickened GB with gallstones #Atrial fibrillation (new): #acute on likely chronic systolic(35-40) CHF (new): #Hypophosphatemia: #Cirrhosis, likely 2/2 etoh: #Macrocytic anemia on likely chronic: likely 2/2 chronic alcohol use #Thrombocytopenia: likely 2/2 chronic alcohol use #Hypothyroidism: poorly controlled likely 2/2 noncompliance #Reported history of chronic hepatitis C: #Probable malnourishment: #Diarrhea, negative C. difficile screen #HYponatremia/Hypophosphatemia: #Generalized weakness/deconditioning: #Probable dementia/Questionable capacity: #Severe alcohol use disorder: Plan: -Vancomycin IV per pharmacy d/c, ceftriaxone and metronidazole for now. pending BC -prednisone 40mg daily followed by 7-10 day taper -Demarcate and monitor right foot cellulitis -Replace electrolytes as needed -Gen surg following for GB eval -CIWA protocol with Ativan IV as needed, Vitamin supplementation including high- dose IV thiamine -Rate control> Toprol 50mg qhs, start oral digoxin 125mcg qd and discontinue IV digoxin. -Started lisinopril 2.5mg daily, titrate as tolerated. -Discussed oral anticoagulation for atrial fibrillation, patient and family will discuss amongst themselves. -Analgesics as needed. Imodium as needed for diarrhea. -night monitor. -PT/OT consult. -Continue Levothyroxine 125mcg daily, unclear what the patient's prior levothyro xine dose was. -Consider telepsychiatry consult for capacity evaluation. -Referral to cardiology and repeat echocardiogram in 3 months -CM for placement -ppx: Lovenox as long as platelets greater than 50,000. CODE STATUS: Field Technician Spent With Patient Time: Total time spent is greater than 50% in coordination of care (as documented) at patient's floor/unit and/or counseling patient: Total time spent with greater than 50% in coordination of care (as documented) at patient's floor/unit and/or counseling patient:: 35 - 50 minutes
--- NOTE | 2022-10-19 09:02 | Magnetic Resonance Report ---
INDICATION: Work-up for cholecystitis or cholangitis. COMPARISON: Ultrasound abdomen October 16, 2022. CT abdomen and pelvis October 17, 2022. TECHNIQUE: Multiplanar multisequential MR imaging of the abdomen without contrast. Magnetic resonance cholangiopancreatography technique. Limitations: Significant motion artifact. FINDINGS: Lung bases reveal tiny layering pleural effusions. Gallbladder minimally distended measuring 8.5 cm. Within the limitations of extensive motion artifact there appears to be mild gallbladder wall thickening (3-4 mm). There is no significant pericholecystic fluid. Layering sludge versus gallstones images 15-16 series 8. The distal common bile duct measures 6 mm which is normal for patient's age. No evidence of choledocholithiasis. The liver is homogenous. The spleen, pancreas, kidneys, and adrenal glands have a normal unenhanced MRI appearance. Marrow signal is homogenous. No gastric mucosal abnormality. IMPRESSION: Minimally distended gallbladder with wall thickening and gallstones. Correlate for acute cholecystitis. No evidence of choledocholithiasis. No other acute pathology. Interpreted and Authenticated by: Sreedhar Lee M.D. 10/19/22
--- NOTE | 2022-10-19 10:09 | EKG ---
[facility] Test Date: 2022-10-15 Pat Name: Sandip Montana Department: ED Room: Gender: Male [employer] Vice President: MARIKA : 1955 Requested By: Mateo Dai Order Number: [id number] Reading MD: John Lopez D.O. Measurements Intervals [place] Rate: 154 P: 78 VT: 138 QRS: -50 QRSD: 78 T: 57 QT: 298 QTc: 478 Interpretive Statements Atrial fibrillation with rapid ventricular response Inferior infarct, old Electronically Signed On 10-19-2022 10:09:30 PST by John Lopez D.O. /[email or web address]/[id number]
--- NOTE | 2022-10-19 10:10 | EKG ---
[facility] Test Date: 2022-10-15 Pat Name: Sandip Montana Department: ED Room: Gender: Male Automation Tech: : 1955 Requested By: Mateo Dai Order Number: [id number] Reading MD: John Lopez D.O. Measurements Intervals [place] Rate: 149 P: [place]: QRS: -36 QRSD: 68 T: 32 QT: 302 QTc: 475 Interpretive Statements Atrial fibrillation with rapid ventricular response Inferior infarct, old Electronically Signed On 10-19-2022 10:10:01 PST by John Lopez D.O. /[email or web address]/[id number]
--- NOTE | 2022-10-19 10:11 | EKG ---
[facility] Test Date: 2022-10-16 Pat Name: Sandip Montana Department: ICU Room: 120B Gender: Male Co Founder And Cto: : 1955 Requested By: Tiago Shields Order Number: [id number] Reading MD: John Lopez D.O. Measurements Intervals [place] Rate: 95 P: 72 MN: 135 QRS: -38 QRSD: 72 T: 31 QT: 397 QTc: 495 Interpretive Statements Sinus rhythm PACs and PVC Inferior infarct, old Electronically Signed On 10-19-2022 10:11:05 PST by John Lopez D.O. /[email or web address]/[id number]
[2022-10-19] MEDS: LISINOPRIL 2.5 MG TABLET PO SCH (10:21)
--- NOTE | 2022-10-19 10:27 | EKG ---
[facility] Test Date: 2022-10-17 Pat Name: Sandip Montana Department: ICU Room: 120B Gender: Male Clinical Counselor: : 1955 Requested By: Tiago Shields Order Number: [id number] Reading MD: John Lopez D.O. Measurements Intervals [place] Rate: 149 P: [place]: QRS: -34 QRSD: 73 T: 43 QT: 309 QTc: 487 Interpretive Statements Multifocal atrial tachycardia Low voltage, extremity and precordial leads Borderline prolonged QT interval Electronically Signed On 10-19-2022 10:27:21 PST by John Lopez D.O. /[email or web address]/[id number]
[2022-10-19] MEDS ORDERED: ALBUMIN HUMAN 12.5 GM/50 ML BAG IV SCH (10:45)
[2022-10-19] MEDS ORDERED: FUROSEMIDE 40 MG/4 ML VIAL IV SCH (10:45)
--- NOTE | 2022-10-19 11:27 | Discharge Summary ---
Discharge Provider Provider IMPORTANT FOLLOW-UP INFORMATION FOR PCP: Plan: -finish Abx -prednisonetaper for gout -Rate control> Toprol 50mg qhs, start oral digoxin 125mcg qd, f/u outpt dig level ordered 3 days out -Lasix -Started lisinopril 2.5mg daily, titrate as tolerated. -Discussed oral anticoagulation for atrial fibrillation, patient and family will discuss amongst themselves. -Referral to cardiology and repeat echocardiogram in 3 months Patient information: Note initiated : 10/19/22 at 11:25 am Service Date, if different from initiated Date: [] Patient: Sandip Montana 67 y/o M admitted on 10/15/22 for Weakness. Chief Complaint: [] Date of admission: 10/15/22 21:04 Discharge date: 10/21/22 Primary care physician: Lester Marin Consults: 10/15/22 Consult to Physician [CONS] Stat Comment: Consulting Provider: Tiago Shields Reason For Exam: Physician to Consult 10/17/22 10:31 Consult to Physician [CONS] Routine Comment: Consulting Provider: Davie Child Reason For Exam: Physician to Consult 10/19/22 10:04 Consult to Physician [CONS] Routine Comment: [facility] Consulting Provider: Александр Griffiths Reason For Exam: Physician to Consult COURSE Hospital Course Hospital course: HPI: Mr. Montana is a 67 year old M male with a historyof severe alcohol use disorder, cognitive impairment, hypothyroidism, BPH, degenerative disc disease who is visiting family and was brought to the ED by family due to concerns of generalized weakness and inability to manage his activities of daily living as well as lower extremity edema. The patient was found to have cellulitis of his right foot in the ED as well as hypokalemia and hypomagnesemia. Per report, the patient consumes a significant amount of alcohol daily most the time but has not consumed alcohol for several days. He is apparently homebound and requires a caregiver at baseline. The patient lives in [place] and came to spent the holiday weekend with family. Hospital medicine was asked to admit the patient for cellulitis, electrolyte replacement and supportive cares. The patient is unable to provide any history as he received Ativan in the ED and was asleep when I examined him. The ED provider did discuss CODE STATUS with his family members and the patient is full code. 10/16 Overnight the patient went into atrial fibrillation with rapid ventricular response, started a amiodarone bolus followed by infusion and the patient converted back to sinus rhythm. This morning started Lopressor 25 mg twice daily and discontinued the amiodarone infusion. The patient is alert and oriented today. Cellulitis improving since admission. Replaced magnesium, potassium normal today. Radiology reports of the foot x-ray was not suggestive of osteomyelitis, no fractures noted. CTA chest did not show any pulmonary emboli, there was interstitial lung disease in the lateral basal segment of the left lower lobe which could be inflammation or fibrosis. Liver ultrasound revealed echogenic sludge in the gallbladder, no evidence of cholecystitis or dilation of the bile ducts, fatty infiltration of the liver without evidence of cirrhosis. Vitamin B12 level was about 800. Improving bilirubin. Urine culture growing Enterococcus faecium, started vancomycin IV per pharmacy. Also on ceftriaxone. Roper catheter removed. 10/17 The patient continues to have fevers overnight. Today he is having diarrhea, check C. difficile screen and that was negative. SARS-CoV-2, influenza A, influenza B, RSV PCR negative. Blood cultures showing no growth to date. Cellulitis of the right foot is improving, query possibility of gout in that foot as well. Added Toradol IV as needed. CT abdomen pelvis with contrast today was suspicious for cholecystitis. Added metronidazole IV. General surgery consulted, recommended continuing IV antibiotics and obtaining an MRCP. Heart rate increased later in the evening, repeat EKG showed A. fib with RVR. Transthoracic echocardiogram results available and showed an LVEF of 35 to 40%, normal right ventricular size and function, mild to moderate mitral regurgitation, mild to moderate tricuspid regurgitation. Switch beta-blockers to Toprol 50 mg at bedtime. Added digoxin IV load, monitoring for effect. If no effect then will likely start amiodarone. Blood pressure on the low side so holding off on RAAS inhibition at this time. Obtain ultrasound of right MTP joint to evaluate for effusion. Discussed anticoagulation for atrial fibrillation with the patient and family at the bedside, they will think about it before making a decision. 1/3 Afebrile overnight, vitals improved including improvement in heart rate after starting digoxin IV load. MRCP today per general surgery recommendations. Ultrasound of right MTP showed a possible fluid collection, radiology will perform an aspiration and send fluid for studies. Transition from IV to oral digoxin. Continues on broad-spectrum antibiotics for now. 1/4 MTP aspiration with monosodium urate crystals. Prednisone started. Patient afebrile overnight. Thrombocytopenia. Hyponatremia. Metabolic acidosis. Bilirubin improving. 10/20 Anemia stable, cytopenia stable. Sodium better. Magnesium low today. Patient on oxygen and with increased weight and fluid status will get IV Lasix. Naproxen today for gout. 10/21 No overnight event or new complaints. Stable for discharge. decrease metoprolol for mild bradycardia High risk for readmit admission given comorbidities A: #Nonpurulent cellulitis of right foot: #Acute Gout of right MTP joint: #UTI (Enterococcus), complicated: #Possible cholecystitis per imaging: gen surg following >low suspicion #Atrial fibrillation (new): #acute on likely chronic systolic(35-40) CHF (new): #Hypophosphatemia: #Cirrhosis, likely 2/2 etoh: #Macrocytic anemia on likely chronic: likely 2/2 chronic alcohol use #Thrombocytopenia: likely 2/2 chronic alcohol use #Hypothyroidism: poorly controlled likely 2/2 noncompliance #Reported history of chronic hepatitis C: #Probable malnourishment: #Diarrhea, negative C. difficile screen #HYponatremia/Hypophosphatemia: #Generalized weakness/deconditioning: #Probable dementia/Questionable capacity: #Severe alcohol use disorder: Plan: -Abx -prednisone taper -Rate control> Toprol 50mg qhs, start oral digoxin 125mcg qd -Lasix -Started lisinopril 2.5mg daily, titrate as tolerated. -Discussed oral anticoagulation for atrial fibrillation, patient and family will discuss amongst themselves. -Continue Levothyroxine 125mcg daily, unclear what the patient's prior le vothyroxine dose was. -Referral to cardiology and repeat echocardiogram in 3 months Discharge diagnosis: Cellulitis of the right foot gout UTI Enterococcus new A. fib CHF Secondary discharge diagnosis: New A. fib acute on likely chronic systolic heart failure hypophosphatemia cirrhosis likely alcohol induced macrocytic anemia secondary to alcohol use thrombocytopenia secondary alcohol use hypothyroidism poorly controlled noncompliant hyponatremia generalized weakness deconditioning probable dementia alcohol induced and severe alcohol disorder Time Spent with Patient Time attestation: Total time spent providing and/or coordinating discharge services: Time spent: Greater than 30 minutes EXAM Constitutional Vitals: Temp Pulse Resp BP Pulse Ox O2 Del Method O2 Flow Rate 97.1 F 111 H 22 104/76 95 2 10/19/22 08:00 10/19/22 08:00 10/19/22 10:00 10/19/22 10:00 10/19/22 10:00 10/19/22 10:00 10/16/22 02:00 Discharge Data Data Completed and Pending Labs on day of discharge: Labs from last 24 hours 10/19/22 10/19/22 10/18/22 05:38 05:38 11:00 WBC 4.8 RBC 2.73 L Hgb 10.0 L Hct 30.9 L MCV 113.2 H MCH 36.6 H MCHC 32.4 RDW 16.3 H Plt Count 110 L MPV 12.1 Immature Gran % (Auto) 0.6 H Neut % (Auto) 78.4 H Lymph % (Auto) 12.9 L [place] % (Auto) 7.7 Eos % (Auto) 0.2 Baso % (Auto) 0.2 Lymph # (Auto) 0.62 L [place] # (Auto) 0.37 Eos # (Auto) 0.01 Baso # (Auto) 0.01 Immature Gran # 0.03 Absolute Neutrophils 3.75 Sodium 131 L Potassium 4.8 Chloride 106 Carbon Dioxide 19 L Anion Gap 6.0 L BUN 8 Creatinine 0.5 L GFR Calculation 113 Glucose 146 H Uric Acid 4.1 Calcium 8.1 L Phosphorus 3.0 Magnesium 1.6 Total Bilirubin 1.5 H Direct Bilirubin 0.9 H GGT 363 H AST 49 H ALT 14 Alkaline Phosphatase 130 H Lactate Dehydrogenase 238 H Total Protein 5.4 L Albumin 2.3 L Globulin 3.1 Albumin/Globulin Ratio 0.7 L Triglycerides 121 Fluid Source Fluid Color Fluid Appearance Fluid RBC Fluid Nucleated Cells Fluid Neutrophils Fluid Crystals Synovial Uric Acid TNP 10/18/22 10/18/22 11:00 11:00 WBC RBC Hgb Hct MCV MCH MCHC RDW Plt Count MPV Immature Gran % (Auto) Neut % (Auto) Lymph % (Auto) [place] % (Auto) Eos % (Auto) Baso % (Auto) Lymph # (Auto) [place] # (Auto) Eos # (Auto) Baso # (Auto) Immature Gran # Absolute Neutrophils Sodium Potassium Chloride Carbon Dioxide Anion Gap BUN Creatinine GFR Calculation Glucose Uric Acid Calcium Phosphorus Magnesium Total Bilirubin Direct Bilirubin GGT AST ALT Alkaline Phosphatase Lactate Dehydrogenase Total Protein Albumin Globulin Albumin/Globulin Ratio Triglycerides Fluid Source Synovial Fluid Color [place] Fluid Appearance cloudy viscous Fluid RBC TNP Fluid Nucleated Cells TNP Fluid Neutrophils TNP Fluid Crystals Monosodium urate A Synovial Uric Acid Preliminary micro results at discharge 10/18/22 11:00 Gram Stain - Preliminary Aspirate - Right Big Body Fluid Culture - Preliminary 10/15/22 18:30 Blood Culture - Preliminary Blood 10/15/22 18:15 Blood Culture - Preliminary Blood Discharge Plan Patient/Caregiver Discharge Instructions Activity: increase activity as tolerated Diet: Regular Diet Activity Restrictions/Additional Instructions: Referral to see cardiology in 3 to 14 days for atrial fibrillation and systolic heart failure. Prescriptions: New digoxin 125 mcg (0.125 mg) Tablet 125 mcg PO DAILY@1400 Qty: 30 0RF lisinopril 2.5 mg Tablet 2.5 mg PO DAILY Qty: 30 0RF prednisone 10 mg tablet 40 mg PO QDAY Qty: 1 0RF Rx Instructions: Take 40mg once daily for 2 days then 20mg daily for 2 days then 10mg daily x2 days then 5mg x2 days and stop amoxicillin-pot clavulanate 875-125 mg tablet 1 tab PO BID Qty: 4 0RF furosemide [Lasix] 40 mg tablet 40 mg PO QAM Qty: 30 0RF metoprolol succinate [Toprol XL] 25 mg tablet extended release 24 hr 25 mg PO QHS Qty: 30 0RF Continued aspirin 81 mg tablet,delayed release (DR/EC) 1 tab PO QDAY gabapentin 600 mg tablet 1 tab PO TID potassium chloride 10 mEq tablet extended release 1 tab PO QDAY tamsulosin 0.4 mg capsule 2 cap PO QDAY levothyroxine 150 mcg tablet 1 tab PO QDAY omeprazole 20 mg capsule,delayed release(DR/EC) 1 cap PO QDAY furosemide 20 mg tablet 1 tab PO QDAY finasteride 5 mg tablet 1 tab PO QDAY thiamine HCl (vitamin B1) [Vitamin B-1] 50 mg tablet 50 mg PO BID Label Comments: [NO ORIGINAL SIG] Discontinued meloxicam 15 mg tablet 1 tab PO QDAY Other Ambulatory Orders: Digoxin (Routine) Timeframe: 3 Days Facility: [facility] - Location: Laboratory Ordered By: Hari Espino Follow Up Plan Follow up with: Lester Marin PA-C [Primary Care Provider] - Patient Disposition: Xfer SNF Prognosis: Undetermined Rehab Potential: Fair I certify that the patient requires SNF services: Yes Overall status at discharge: patient is progressing back to baseline Discharge Orders: Discharge Order (Routine); Ordered 10/21/22 Ordered By: Hari Espino
[2022-10-19] MEDS: metroNIDAZOLE 500 MG TABLET PO SCH ×2 (14:10→21:03)
[2022-10-19] MEDS: DIGOXIN 125 MCG TABLET PO SCH (14:10)
[2022-10-19] MEDS: THIAMINE 100 MG TABLET PO SCH ×2 (14:10→21:08)
--- NOTE | 2022-10-19 18:06 | General Surgery Progress Note ---
SUBJECTIVE Subjective Patient information: Note initiated : 10/19/22 at 6:03 pm Service Date, if different from initiated Date: [] Patient: Sandip Montana 67 y/o M admitted on 10/15/22 for Weakness. Chief Complaint: [] Continues to deny any abdominal pain. MRCP findings somewhat equivocal for wall thickening and no other significant issues noted, no evidence of biliary obstruction or common duct stones. Constitutional Vitals: Vital Signs Temp Pulse Resp BP Pulse Ox O2 Del Method O2 Flow Rate 98.2 F 70 20 125/107 99 2 10/19/22 16:52 10/19/22 16:52 10/19/22 16:52 10/19/22 16:52 10/19/22 16:52 10/19/22 16:52 10/16/22 02:00 Period Temp Pulse Resp BP Sys/Garcia Pulse Ox O2 Del Method O2 Flow Rate Last 24 Hr 97.1 F-98.9 F 42-129 15-23 103-137/61-107 85-99 Room Air-Room Air Intake and Output 10/19/22 10/19/22 10/19/22 03:59 11:59 19:59 Intake Total 403 863 Output Total 212 047 1768 Balance 3 213 -1295 Intake & Output: Intake & Output 10/19/22 10/19/22 10/19/22 03:59 11:59 19:59 Intake Total 403 863 Output Total 623 785 1467 Balance 3 213 -1295 Intake: IV 403 503 Vitamin B1 300 mg In Sodium 53 53 Chloride 0.9% 50 ml @ 50 mls/hr IV Q8H [facility] Rx#:[id number] Vancomycin 1,000 mg In Sodium 250 250 Chloride 0.9% 250 ml @ 250 mls/ hr IV Q12H [facility] Rx#:[id number] Rocephin 2 gm In Dextrose 5% in 50 Water 50 ml @ 100 mls/hr IV Q24H [facility] Rx#:[id number] Oral 360 Output: Void Amount 979 753 [id number] Other: Meal Breakfast Percent of Meal Consumed 100% Urine Appearance Clear Clear Clear Urine Color Red Brown Dark Yellow Yellow Exam: Conversant, answers questions GI/Abdominal Additional comments: belly soft and non tender, no RUQ tenderness A/P Assessment and plan (1) Gallbladder anomaly: Assessment and plan: MRCP findings noted No clinical evidence of Cholecystitis at this time and it seems likely that the elevated LFTs and changes seen in and around the liver and the gallbladder are related to his Chronic Alcohol Abuse and secondary Cirrhosis No operative plans at this time in the absence of clinical symptoms but follow up in our office would be appropriate to further discuss if discharge is imminent Status: Acute Time Spent With Patient Time: Total time spent is greater than 50% in coordination of care (as documented) at patient's floor/unit and/or counseling patient:
[2022-10-19] MEDS: METOPROLOL SUCCINATE 50 MG TAB.XL.24H PO SCH (21:03)
[2022-10-20] MEDS: ACETAMINOPHEN 325 MG TABLET PO PRN ×2 (05:09→21:07)
[2022-10-20] MEDS: THIAMINE 100 MG TABLET PO SCH ×3 (05:10→21:07)
[2022-10-20] MEDS: metroNIDAZOLE 500 MG TABLET PO SCH ×2 (05:10→13:57)
[2022-10-20] MEDS: 0.9 % SODIUM CHLORIDE 10 ML SYRINGE IV SCH ×3 (05:16→21:11)
[2022-10-20 06:54] LABS: Basophils # (Auto) 0.02 K/mcL (0.00-0.30); Basophils % (Auto) 0.3 % (0.0-2.0); Eosinophils # (Auto) 0.06 K/mcL (0.00-0.70); Eosinophils % (Auto) 0.9 % (0.0-7.0); Hematocrit 31.3 % (40.1-51.0); Hemoglobin 10.1 g/dL (13.7-17.5); Lymphocytes # (Auto) 1.33 K/mcL (1.50-4.80); Lymphocytes % (Auto) 20.3 % (15.5-49.0); Mean Cell Volume 113.8 fL (80.0-100.0); Mean Corpuscular HGB Conc 32.3 g/dL (31.0-36.0); Mean Platelet Volume 12.1 fL (8.8-12.5); Monocytes # (Auto) 0.68 K/mcL (0.10-0.90); Monocytes % (Auto) 10.4 % (1.0-12.0); Neutrophils % (Auto) 67.5 % (38.0-78.0); Platelet Count 150 K/mcL (140-440); RBC 2.75 M/mcL (4.63-6.08); Red Cell Distribution Width 16.9 % (11.5-14.5); WBC 6.5 K/mcL (4.5-11.0)
[2022-10-20] MEDS: LEVOTHYROXINE 125 MCG TABLET PO SCH (07:08)
[2022-10-20 07:17] LABS: ALT/SGPT 16 U/L (<40); AST/SGOT 55 U/L (<40); Albumin 2.8 gm/dL (3.2-5.2); Alkaline Phosphatase 128 U/L (39-117); Bilirubin,Direct 0.8 mg/dL (<0.3); Bilirubin,Total 1.4 mg/dL (0.1-1.0); Blood Urea Nitrogen 11 mg/dL (8-23); Calcium 9.3 mg/dL (8.6-10.4); Carbon Dioxide 22 mmol/L (22-30); Chloride 105 mmol/L (96-108); Globulin 2.9 gm/dL (2.2-3.7); Glomerular Filtration Rate 105; Glucose 85 mg/dL (70-105); Lactate Dehydrogenase 228 U/L (135-225); Triglycerides 122 mg/dL (<150); Uric Acid 5.1 mg/dL (2.5-8.0)
[2022-10-20 07:32] LABS: Digoxin 1.1 ng/mL
[2022-10-20] MEDS ORDERED: FUROSEMIDE 40 MG/4 ML VIAL IV ONE (07:35)
[2022-10-20] MEDS ORDERED: ALBUMIN HUMAN 12.5 GM/50 ML BAG IV ONE (07:35)
[2022-10-20] MEDS ORDERED: MAGNESIUM SULFATE 2 GM/50 ML BAG IV ONE (07:35)
--- NOTE | 2022-10-20 07:37 | Internal Med Progress Note ---
SUBJECTIVE Subjective Patient information: Note initiated : 10/20/22 at 7:32 am Service Date, if different from initiated Date: [] Patient: Sandip Montana 67 y/o M admitted on 10/15/22 for Weakness. Chief Complaint: [] Interval history: Interval history: Mr. Montana is a 67 year old M male with a historyof severe alcohol use disorder, cognitive impairment, hypothyroidism, BPH, degenerative disc disease who is visiting family and was brought to the ED by family due to concerns of generalized weakness and inability to manage his activities of daily living as well as lower extremity edema. The patient was found to have cellulitis of his right foot in the ED as well as hypokalemia and hypomagnesemia. Per report, the patient consumes a significant amount of alcohol daily most the time but has not consumed alcohol for several days. He is apparently homebound and requires a caregiver at baseline. The patient lives in [place] and came to spent the holiday weekend with family. Hospital medicine was asked to admit the patient for cellulitis, electrolyte replacement and supportive cares. The patient is unable to provide any history as he received Ativan in the ED and was asleep when I examined him. The ED provider did discuss CODE STATUS with his family members and the patient is full code. 10/16 Overnight the patient went into atrial fibrillation with rapid ventricular response, started a amiodarone bolus followed by infusion and the patient converted back to sinus rhythm. This morning started Lopressor 25 mg twice daily and discontinued the amiodarone infusion. The patient is alert and oriented today. Cellulitis improving since admission. Replaced magnesium, potassium normal today. Radiology reports of the foot x-ray was not suggestive of osteomyelitis, no fractures noted. CTA chest did not show any pulmonary emboli, there was interstitial lung disease in the lateral basal segment of the left lower lobe which could be inflammation or fibrosis. Liver ultrasound revealed echogenic sludge in the gallbladder, no evidence of cholecystitis or dilation of the bile ducts, fatty infiltration of the liver without evidence of cirrhosis. Vitamin B12 level was about 800. Improving bilirubin. Urine culture growing Enterococcus faecium, started vancomycin IV per pharmacy. Also on ceftriaxone. Roper catheter removed. 10/17 The patient continues to have fevers overnight. Today he is having diarrhea, check C. difficile screen and that was negative. SARS-CoV-2, influenza A, influenza B, RSV PCR negative. Blood cultures showing no growth to date. Cellulitis of the right foot is improving, query possibility of gout in that foot as well. Added Toradol IV as needed. CT abdomen pelvis with contrast today was suspicious for cholecystitis. Added metronidazole IV. General surgery consulted, recommended continuing IV antibiotics and obtaining an MRCP. Heart rate increased later in the evening, repeat EKG showed A. fib with RVR. Transthoracic echocardiogram results available and showed an LVEF of 35 to 40%, normal right ventricular size and function, mild to moderate mitral regurgitation, mild to moderate tricuspid regurgitation. Switch beta-blockers to Toprol 50 mg at bedtime. Added digoxin IV load, monitoring for effect. If no effect then will likely start amiodarone. Blood pressure on the low side so holding off on RAAS inhibition at this time. Obtain ultrasound of right MTP joint to evaluate for effusion. Discussed anticoagulation for atrial fibrillation with the patient and family at the bedside, they will think about it before making a decision. 1/3 Afebrile overnight, vitals improved including improvement in heart rate after starting digoxin IV load. MRCP today per general surgery recommendations. Ultrasound of right MTP showed a possible fluid collection, radiology will perform an aspiration and send fluid for studies. Transition from IV to oral digoxin. Continues on broad-spectrum antibiotics for now. 10/19 MTP aspiration with monosodium urate crystals. Prednisone started. Patient afebrile overnight. Thrombocytopenia. Hyponatremia. Metabolic acidosis. Bilirubin improving. 10/20 Anemia stable, cytopenia stable. Sodium better. Magnesium low today. Patient on oxygen and with increased weight and fluid status will get IV Lasix. Naproxen today for gout. Review of Systems: denies headache/fever/chills/nausea/vomiting/chest or abdominal pain/cough/dyspnea/diarrhea. Otherwise see above. Constitutional Vitals: Vital Signs Temp Pulse Resp BP Pulse Ox O2 Del Method O2 Flow Rate 97.4 F 53 L 18 115/89 100 2 10/20/22 04:53 10/20/22 04:53 10/20/22 04:53 10/20/22 04:53 10/20/22 04:53 10/20/22 04:53 10/20/22 04:53 Period Temp Pulse Resp BP Sys/Garcia Pulse Ox O2 Del Method O2 Flow Rate Last 24 Hr 97.1 F-98.4 F 53-111 10-07 103-125/61-107 85-100 Nasal Cannula-Room Air 2-2 Intake and Output 10/19/22 10/20/22 10/20/22 19:59 03:59 11:59 Intake Total 420 100 Output Total 1295 400 300 Balance -875 -400 -200 Weight 81.148 kg Intake & Output: Intake & Output 10/19/22 10/20/22 10/20/22 19:59 03:59 11:59 Intake Total 420 100 Output Total 1295 400 300 Balance -875 -400 -200 Weight 81.148 kg Intake: Oral 420 100 Output: Void Amount 1295 400 300 Other: Meal Dinner Percent of Meal Consumed 50% Feeding Ability Assist with Tray Set Up Urine Appearance Clear Clear Clear Urine Color Yellow Dark Yellow Bright Yellow Urine Odor Strong Stool Size Large Stool Color Brown Stool Consistency Formed # Bowel Movements 2 # of times incontinent of 1 Bowels Exam: General: Alert, Awake, No acute Distress Eyes/N/T: EOMI, Head/Neck: neck supple, CV: irreg, No murmurs, Pulm: Clear b/l, no wheezing/rhonchi/rales Abd: soft, nontender, +BS x4 Ext: no clubbing/cyanosis, right foot edema, warmth improving per pt, and tenderness Neuro: Alert, no focal deficits, moves all extremities, Skin: warm/dry OBJ DATA Labs CBC & Chem 7: 10/20/22 05:38 10/20/22 05:38 Labs: Abnormal Lab Results 10/20/22 10/20/22 10/19/22 05:38 05:38 05:38 RBC 2.75 L 2.73 L Hgb 10.1 L 10.0 L Hct 31.3 L 30.9 L MCV 113.8 H 113.2 H MCH 36.7 H 36.6 H RDW 16.9 H 16.3 H Plt Count 110 L Immature Gran % (Auto) 0.6 H 0.6 H Neut % (Auto) 78.4 H Lymph % (Auto) 12.9 L [place] % (Auto) Lymph # (Auto) 1.33 L 0.62 L Sodium Carbon Dioxide Anion Gap BUN Creatinine 0.6 L Glucose Calcium Phosphorus Magnesium 1.5 L Total Bilirubin 1.4 H Direct Bilirubin 0.8 H GGT 389 H AST 55 H Alkaline Phosphatase 128 H Lactate Dehydrogenase 228 H Total Protein 5.7 L Albumin 2.8 L Albumin/Globulin Ratio Fluid Crystals 10/19/22 10/18/22 10/18/22 05:38 11:00 05:34 RBC 2.45 L Hgb 9.2 L Hct 28.1 L MCV 114.7 H MCH 37.6 H RDW 16.3 H Plt Count 91 L Immature Gran % (Auto) Neut % (Auto) Lymph % (Auto) [place] % (Auto) 14.6 H Lymph # (Auto) 0.99 L Sodium 131 L Carbon Dioxide 19 L Anion Gap 6.0 L BUN Creatinine 0.5 L Glucose 146 H Calcium 8.1 L Phosphorus Magnesium Total Bilirubin 1.5 H Direct Bilirubin 0.9 H GGT 363 H AST 49 H Alkaline Phosphatase 130 H Lactate Dehydrogenase 238 H Total Protein 5.4 L Albumin 2.3 L Albumin/Globulin Ratio 0.7 L Fluid Crystals Monosodium urate A 10/18/22 10/17/22 05:24 06:58 RBC Hgb Hct MCV MCH RDW Plt Count Immature Gran % (Auto) Neut % (Auto) Lymph % (Auto) [place] % (Auto) Lymph # (Auto) Sodium 131 L Carbon Dioxide 19 L 19 L Anion Gap 6.0 L BUN 6 L 7 L Creatinine 0.6 L 0.6 L Glucose Calcium 7.2 L 7.0 L Phosphorus 1.9 L 1.5 L Magnesium Total Bilirubin 2.2 H 2.9 H Direct Bilirubin 1.3 H 1.8 H GGT 309 H 333 H AST 53 H 58 H Alkaline Phosphatase Lactate Dehydrogenase Total Protein 5.1 L 5.4 L Albumin 2.4 L 2.6 L Albumin/Globulin Ratio 0.9 L 0.9 L Fluid Crystals Meds: Medications Acetaminophen (Acetaminophen 325 Mg Tablet) 650 mg PO Q6HP PRN; Protocol PRN Reason: Per Pain Protocol/Fever > 101 Last Admin: 10/20/22 05:09 Dose: 650 mg Albuterol Sulfate (Albuterol Sulfate 2.5 Mg/3 Ml Nebulizer) 2.5 mg NEB Q2HP PRN PRN Reason: dyspnea Cyanocobalamin (Cyanocobalamin (Vitamin B-12) 500 Mcg Tablet) 500 mcg PO DAILY [facility] Last Admin: 10/19/22 08:04 Dose: 500 mcg Digoxin (Digoxin 125 Mcg Tablet) 125 mcg PO DAILY@1400 [facility] Last Admin: 10/19/22 14:10 Dose: 125 mcg Enoxaparin Sodium (Enoxaparin 40 Mg/0.4 Ml Syringe) 40 mg SQ DAILY [facility] Last Admin: 10/19/22 08:04 Dose: 40 mg Folic Acid (Folic Acid 1 Mg Tablet) 1 mg PO DAILY [facility] Last Admin: 10/19/22 08:04 Dose: 1 mg Haloperidol Lactate (Haloperidol Lactate 5 Mg/Ml Vial) 2 mg IV Q4HP PRN PRN Reason: ANXIETY/SEDATION Ceftriaxone Sodium 2 gm/ (Dextrose) 50 mls @ 100 mls/hr IV Q24H [facility]; Protocol Last Infusion: 10/19/22 09:35 Dose: Infused Lactulose (Lactulose 20 Gm/30 Ml Oral.Hanh) 10 gm PO DAILYP PRN PRN Reason: Constipation Levothyroxine Sodium (Levothyroxine 125 Mcg Tablet) 125 mcg PO QAMAC [facility] Last Admin: 10/20/22 07:08 Dose: 125 mcg Lisinopril (Lisinopril 2.5 Mg Tablet) 2.5 mg PO DAILY [facility] Last Admin: 10/19/22 10:21 Dose: 2.5 mg Loperamide HCl (Loperamide 2 Mg Capsule) 2 mg PO Q4HP PRN PRN Reason: Diarrhea Last Admin: 10/18/22 09:13 Dose: 2 mg Lorazepam (Lorazepam 2 Mg/Ml Vial) 0 mg IV UD PRN; Protocol PRN Reason: Alcohol Withdrawal/Assess CIWA Metoprolol Succinate (Metoprolol Succinate 50 Mg Tab.Xl.24h) 50 mg PO HS [facility] Last Admin: 10/19/22 21:03 Dose: 50 mg Metoprolol Tartrate (Metoprolol Tartrate 5 Mg/5 Ml Vial) 5 mg IV Q2HP PRN PRN Reason: Tachyarrhythmias HR>110 Last Admin: 10/18/22 17:51 Dose: 5 mg Metronidazole (Metronidazole 500 Mg Tablet) 500 mg PO Q8 [facility] Last Admin: 10/20/22 05:10 Dose: 500 mg Ondansetron HCl (Ondansetron 4 Mg/2 Ml Vial) 4 mg IV Q4HP PRN; Protocol PRN Reason: Nausea And Vomiting Pneumococcal Polyvalent Vaccine (Pneumococcal 23-Magali P-Sac Vac 0.5 Ml Syringe) 0.5 ml IM .ONCE ONE Stop: 10/20/22 10:01 Potassium Chloride (Potassium Chloride 20 Meq Tablet) 40 meq PO [facility] Stop: 10/20/22 07:59 Last Admin: 10/19/22 08:04 Dose: 40 meq Prednisone (Prednisone 20 Mg Tablet) 40 mg PO [facility] Last Admin: 10/19/22 08:04 Dose: 40 mg Senna (Sennosides 1 Tablet) 2 tab PO [facility] PRN PRN Reason: Constipation Sodium Chloride (0.9 % Sodium Chloride 10 Ml Syringe) 10 ml IV Q8 [facility] Last Admin: 10/20/22 05:16 Dose: 10 ml Thiamine HCl (Thiamine 100 Mg Tablet) 300 mg PO Q8 [facility] Last Admin: 10/20/22 05:10 Dose: 300 mg A/P Narrative A/P Narrative: A: #Nonpurulent cellulitis of right foot: #Acute Gout of right MTP joint and Left MTP: #UTI (Enterococcus), complicated: #Possible cholecystitis: gen surg following >low suspicion -MRCP with minimally distended/thickened GB with gallstones #Atrial fibrillation (new): #acute on likely chronic systolic(35-40) CHF (new): #Hypophosphatemia: improved #Cirrhosis, likely 2/2 etoh: #Macrocytic anemia on likely chronic: likely 2/2 chronic alcohol use #Thrombocytopenia: likely 2/2 chronic alcohol use #Hypothyroidism: poorly controlled likely 2/2 noncompliance #Reported history of chronic hepatitis C: #Probable malnourishment: #Diarrhea, negative C. difficile screen #HYponatremia/Hypophosphatemia/Hypomagnesemia: #Generalized weakness/deconditioning: #Probable dementia/Questionable capacity: #Severe alcohol use disorder: Plan: -ceftriaxone, pending final BC -prednisone 40mg daily followed by 7-10 day taper, naproxen today -Demarcate and monitor right foot cellulitis -Replace electrolytes as needed -Gen surg following for GB eval, no need for surgery -CIWA protocol with Ativan IV as needed, Vitamin supplementation including high- dose IV thiamine -lasix IV today -Rate control> Toprol 50mg qhs, start oral digoxin 125mcg qd and discontinue IV digoxin. -Started lisinopril 2.5mg daily, titrate as tolerated. -Discussed oral anticoagulation for atrial fibrillation, patient and family will discuss amongst themselves. -Analgesics as needed. Imodium as needed for diarrhea. 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 -PT/OT consult. -Continue Levothyroxine 125mcg daily, unclear what the patient's prior levothyroxine dose was. -Consider telepsychiatry consult for capacity evaluation. -Referral to cardiology and repeat echocardiogram in 3 months -CM for placement -ppx: Lovenox as long as platelets greater than 50,000. CODE STATUS: Conservation Coordinator Spent With Patient Time: Total time spent is greater than 50% in coordination of care (as documented) at patient's floor/unit and/or counseling patient: Total time spent with greater than 50% in coordination of care (as documented) at patient's floor/unit and/or counseling patient:: 35 - 50 minutes
[2022-10-20] MEDS: predniSONE 20 MG TABLET PO SCH (07:46)
[2022-10-20] MEDS: cefTRIAXone 2 GM in DEXTROSE 5% IN WATER 50 ML IV SCH (08:33)
[2022-10-20] MEDS: LISINOPRIL 2.5 MG TABLET PO SCH (09:01)
[2022-10-20] MEDS: ENOXAPARIN 40 MG/0.4 ML SYRINGE SQ SCH (09:02)
[2022-10-20] MEDS: FOLIC ACID 1 MG TABLET PO SCH (09:02)
[2022-10-20] MEDS: CYANOCOBALAMIN (VITAMIN B-12) 500 MCG TABLET PO SCH (09:02)
[2022-10-20] MEDS: NAPROXEN 250 MG TABLET PO SCH ×2 (09:05→17:26)
[2022-10-20] MEDS ORDERED: FLU VACC QS2022-23(6MOS UP)/PF 60 MCG/0.5 ML SYRINGE IM ONE (10:00)
[2022-10-20] MEDS ORDERED: PNEUMOCOCCAL 23-VAL P-SAC VAC 0.5 ML SYRINGE IM ONE (10:00)
[2022-10-20] MEDS: DIGOXIN 125 MCG TABLET PO SCH (17:26)
[2022-10-20] MEDS: METOPROLOL SUCCINATE 50 MG TAB.XL.24H PO SCH (21:07)
[2022-10-21] MEDS: 0.9 % SODIUM CHLORIDE 10 ML SYRINGE IV SCH (05:32)
[2022-10-21] MEDS: THIAMINE 100 MG TABLET PO SCH (05:32)
[2022-10-21] MEDS: ACETAMINOPHEN 325 MG TABLET PO PRN (05:35)
[2022-10-21] MEDS: LEVOTHYROXINE 125 MCG TABLET PO SCH (07:19)
[2022-10-21] MEDS: LISINOPRIL 2.5 MG TABLET PO SCH (08:23)
[2022-10-21] MEDS: FOLIC ACID 1 MG TABLET PO SCH (08:24)
[2022-10-21] MEDS: predniSONE 20 MG TABLET PO SCH (08:24)
[2022-10-21] MEDS: ENOXAPARIN 40 MG/0.4 ML SYRINGE SQ SCH (08:25)
[2022-10-21] MEDS: CYANOCOBALAMIN (VITAMIN B-12) 500 MCG TABLET PO SCH (08:25)
[2022-10-21] MEDS: cefTRIAXone 2 GM in DEXTROSE 5% IN WATER 50 ML IV SCH (08:26)
[2022-10-21] MEDS ORDERED: METOPROLOL SUCCINATE 25 MG TAB.XL.24H PO SCH (21:00)
== END 2022-10-21 11:00 | DRG 602 ==
LOC: ED 15:22 → ICU 21:04 → MEDSUR 10-19 16:44
PROVIDERS: ADMIT Internal Medicine; ATTEND Internal Medicine